=== PATIENT | female | born 1975 | race Two or more races ===

== ENCOUNTER 2025-08-05 12:05 | Inpatient (IN) | payer MEDICAID, OTHER ==
[~2025-08-05] VITALS: Ht 152.4 cm; Wt 101.7 kg
--- NOTE | 2025-08-05 12:28 | ED.PDOC ---
GI ASSESSMENT HPI Comments 50 y/o F, presents to the ED for CC of abdominal pain. Patient states, she has been experiencing intermittent epigastric abdominal pain since, 07/22/25. Patient reports, symptoms now worsening with most recent episode being as of yesterday (07/05/25) now being accompanied by nausea, vomiting, and diarrhea. No other symptoms or modifying factors are present at this time. Chief Complaint: Abdominal Pain Time Seen by MD: 12:45 Reviewed Notes: Nurses Notes, Medications, Allergies Allergies: Coded Allergies: NO KNOWN ALLERGIES (Unverified , 08/05/25) Information Source: Patient Mode of Arrival: Ambulatory Timing: Hours Duration: Since onset Prehospital treatment: None Quality: None Vomitus: Watery Stool: Watery Severity: Moderate Recent: None Recent Hx of: None Modifying Factors: Nothing Associated sign and symptoms: Nausea, Vomiting, Diarrhea, Abdominal Pain Past Medical History PAST MEDICAL HISTORY: Denies Surgical History: Denies all surgeries CATH LAB TECH History: Denies all CATH LAB TECH Hx Family History Family History: Unknown Social History Smoker: Non-Smoker Alcohol: Denies ETOH Use Drugs: Denies Drug Use Lives In: Home Constitutional: denies: chills, diaphoresis, fatigue, fever, malaise, sweats, weakness, others EENTM: denies: blurred vision, double vision, ear bleeding, ear discharge, ear drainage, ear pain, ear ringing, eye pain, eye redness, hearing loss, mouth pain, mouth swelling, nasal discharge, nose bleeding, nose congestion, nose pain, photophobia, tearing, throat pain, throat swelling, voice changes, others Respiratory: denies: cough, hemoptysis, orthopnea, SOB at rest, shortness of breath, SOB with excertion, stridor, wheezing, others Cardiovascular: denies: chest pain, dizzy spells, diaphoresis, Dyspnea on exertion, edema, irregular heart beat, left arm pain, lightheadedness, palpitations, PND, syncope, others Gastrointestinal: reports: abdominal pain, diarrhea, nausea, vomiting; denies: abdomen distended, blood streaked bowels, constipated, dysphagia, difficulty swallowing, hematemesis, melena, poor appetite, poor fluid intake, rectal bleeding, rectal pain, others Genitourinary: denies: abnormal vagina bleeding, burning, dyspareunia, dysuria, flank pain, frequency, hematuria, incontinence, pain, , vagina discharge, urgency, others Neurological: denies: dizziness, fainting, headache, left sided numbness, left sided weakness, numbness, paresthesia, pre-existing deficit, right sided numbness, right sided weakness, seizure, speech problems, tingling, tremors, weakness, others Musculoskeletal: denies: back pain, gout, joint pain, joint swelling, muscle pain, muscle stiffness, neck pain, others Integumetry: denies: bruises, change in color, change in hair/nails, dryness, laceration, lesions, lumps, rash, wounds, others Allergic/Immunocompromised: denies: Difficulty Healing, Frequent Infections, Hives, Itching, others Hematologic/Lymphatic: denies: anemia, blood clots, easy bleeding, easy bruising, swollen glands, others Endocrine: denies: excessive hunger, excessive sweating, excessive thirst, excessive urination, flushing, intolerance to cold, intolerance to heat, unexplained weight gain, unexplained weight loss, others Psychiatric: denies: anxiety, bipolar disorder, depression, hopeless, panic disorder, schizophrenia, sleepless, suicidal, others All Other Systems: Reviewed and Negative Physical Exam General Appearance: No Apparent Distress, Normal HEENT: Normal ENT Inspection, Pharynx Normal Neck: Full Range of Motion, Non-Tender, Normal, Normal Inspection Respiratory: Chest Non-Tender, Lungs Clear, No Accessory Muscle Use, No Respiratory Distress, Normal Breath Sounds Cardiovascular: No Edema, No Murmur, No Gallop, Normal Peripheral Pulses, Re gular Rate/Rhythm Breast Exam: Deferred Gastrointestinal: Epigastric, No Organomegaly, No Pulsatile Mass, Normal Bowel Sounds, Tenderness Genitalia: Deferred Pelvic: Deferred Rectal: Deferred Extremities: No calf tenderness, Normal capillary refill, Normal inspection, Normal range of motion, Non-tender, No pedal edema Musculoskeletal : Apperance: Normal Neurologic: Alert, grain sampler II-XII nml as Tested, No Motor Deficits, Normal Affect, Normal Mood, No Sensory Deficits Cerebellar Function: Normal Reflexes: Normal Skin: Dry, Normal Color, Warm Lymphatic: No Adenopathy Was a procedure done? Was a procedure done?: No GI differential Dx Differential Diagnosis: Constipation, Gastritis/PUD, Gastroenteritis, Electrolyte Imbalance, Food Poisoning, Bacterial, Viral X-Ray, Labs, Meds, VS Vital Signs Date Time Temp Pulse Resp B/P (MAP) Pulse Ox O2 Delivery O2 Flow Rate FiO2 08/05/25 15:47 91 18 172/106 08/05/25 15:29 97 Room Air* 0 21 08/05/25 15:26 98.3 91 18 172/106 (128) 96 98.3 08/05/25 12:13 82 08/05/25 12:06 97.0 86 18 143/77 98 97.0 Lab Test 08/05/25 13:54 Range/Units White Blood Count 12.5 H 4.4-10.8 10^3/uL Red Blood Count 5.06 4.0-5.20 10^6/uL Hemoglobin 15.3 12.2-16.2 g/dL Hematocrit 45.3 36.0-46.0 % Mean Corpuscular Volume 89.7 80.0-100.0 fL Mean Corpuscular Hemoglobin 30.3 28.0-32.0 pg Mean Corpuscular Hemoglobin Concent 33.8 32.0-36.0 g/dL Red Cell Distribution Width 14.6 H 11.8-14.3 % Platelet Count 219 140-450 10^3/uL Mean Platelet Volume 10.8 6.9-10.8 fL Neutrophils (%) (Auto) 76.4 37.0-80.0 % Lymphocytes (%) (Auto) 16.6 10.0-50.0 % Monocytes (%) (Auto) 5.8 0.0-12.0 % Eosinophils (%) (Auto) 0.9 0.0-7.0 % Basophils (%) (Auto) 0.3 0.0-2.0 % Neutrophils # (Auto) 9.6 H 1.6-8.6 10 ^3/uL Lymphocytes # (Auto) 2.1 0.4-5.4 10 ^3/uL Monocytes # (Auto) 0.7 0-1.3 10 ^3/uL Eosinophils # (Auto) 0.1 0-0.8 10 ^3/uL Basophils # (Auto) 0 0-0.2 10 ^3/uL Nucleated Red Blood Cells 0.0 % Sodium Level 143 136-145 mmol/L Potassium Level 4.0 3.5-5.1 mmol/L Chloride Level 105 98-107 mmol/L Carbon Dioxide Level 28 20-31 mmol/L Anion Gap 10 5-15 Blood Urea Nitrogen 10 9-23 mg/dL Creatinine 0.79 0.550-1.02 mg/dL Glomerular Filtration Rate Calc 91 >90 mL/min BUN/Creatinine Ratio 12.7 10.0-20.0 Serum Glucose 99 74-106 mg/dL Calcium Level 9.8 8.7-10.4 mg/dL Current Medications Medications (Trade) Dose Ordered Sig/Huy Route Start Time Stop Time Status Last Admin Sodium Chloride 1,000 ml @ 1,000 mls/hr Q1H ONCE IV 08/05/25 13:45 08/05/25 14:44 DC 08/05/25 15:48 Morphine Sulfate 4 mg ONCE ONCE IV 08/05/25 13:45 08/05/25 13:46 DC 08/05/25 15:47 Ondansetron HCl (Zofran) 4 mg ONCE ONCE IV 08/05/25 13:45 08/05/25 13:46 DC 08/05/25 15:33 [place] [id number] Ph: [phone] DIAGNOSTIC IMAGING Diagnostic Imaging Report : [id number] Signed PATIENT: RAGHAV GARCIA ACCT: [id number] UNIT: [id number] : 1975 LOC: ER ROOM / BED: / AGE / SEX: 50 / F ADM STATUS: REG ER SERVICE [id number] ORDERING PHYSICIAN: CARLITO MENDOZA MD PROCEDURE(s): ABPLIV - CT AB PEL WITH IV CON ONLY REASON: abdominal pain ORDER NUMBER(s): [id number], ACCESSION NUMBER(s): [id number] CLINICAL HISTORY: abdominal pain TECHNIQUE: CT of the abdomen and pelvis was performed with IV contrast. This exam was performed according to our departmental dose optimization program. Up-to-date CT equipment and radiation dose reduction techniques are utilized as appropriate. CTDI 24 DLP 1113 COMPARISON: None FINDINGS: Abdomen/Pelvis: The spleen, adrenal glands, liver, left kidney, uterus, and bladder are unremarkable. There is a right renal cyst. There is mild peripancreatic inflammatory change. There is mild gallbladder mural edema. The abdominal aorta is normal in course and caliber. There are no significant atherosclerotic calcifications. There is no free intraperitoneal air or fluid. There is no enlarged abdominal or pelvic lymph node. There is no bowel wall thickening or dilatation. The appendix is normal. There is mild colonic diverticulosis. Other: The imaged lower thorax demonstrates breathing changes and atelectasis. No acute osseous abnormality is evident. IMPRESSION: Subtle findings of acute pancreatitis. Mild nonspecific gallbladder mural thickening. In the setting of pancreatitis, consider recently passed stone. Please correlate with laboratory values. Mild colonic diverticulosis. ATED BY: ROBBIE MULLEN MD DICTATED DATE/TIME: 08/05/25 160 SIGNED BY: ROBBIE MULLEN MD SIGNED DATE/TIME: 08/05/25 160 CC: Time of 1ST Reevaluation: 13:15 Reevaluation 1ST: Unchanged Patient Education/Counseling: Diagnosis, Treatment Family Education/Counseling: No Family Present SEPSIS Sepsis Screen Date sepsis recognized/suspect: Aug 05, 2025 Time Sepsis recognized/suspect: 1208 Recent Procedure: No On Antibiotic Therapy: No Respiratory Rate >20: No Heart Rate >90: No Temp<36 C (96.8 F) or >38.3 C: No SBP <90 or MAP <65 mmHG: No New Acute Mental Status Change: No Is the patient on CPAP, BIPAP,: No Physician Orders Electrocardigram (08/05/25 12:15) Urinalysis (08/05/25 13:37) Ct Ab Pel With Iv Con Only (08/05/25 13:37) Hepatic Panel (08/05/25 16:29) Lipase (08/05/25 16:29) NS (08/05/25 16:30) Morphine Sulfate Injection (08/05/25 16:30) Ondansetron Hcl (Zofran) (08/05/25 16:30) Vital Signs Date Time Temp Pulse Resp B/P (MAP) Pulse Ox O2 Delivery O2 Flow Rate FiO2 08/05/25 15:47 91 18 172/106 08/05/25 15:29 97 Room Air* 0 21 08/05/25 15:26 98.3 91 18 172/106 (128) 96 98.3 08/05/25 12:13 82 08/05/25 12:06 97.0 86 18 143/77 98 97.0 Laboratory Tests Test 08/05/25 13:54 White Blood Count 12.5 10^3/uL (4.4-10.8) H Medications Medications Dose Ordered Sig/Huy Route Start Time Stop Time Status Last Admin Dose Admin Morphine Sulfate 4 mg ONCE ONCE IV 08/05/25 13:45 08/05/25 13:46 DC 08/05/25 15:47 Ondansetron HCl 4 mg ONCE ONCE IV 08/05/25 13:45 08/05/25 13:46 DC 08/05/25 15:33 Sodium Chloride 1,000 ml @ 1,000 mls/hr Q1H ONCE IV 08/05/25 13:45 08/05/25 14:44 DC 08/05/25 15:48 Departure 1 Departure Time of Disposition: 16:30 (Patient presented with abdominal pain that was co ncerning for possible appendicits, gastritis, cholecystitis, colitis, gastroenteritis, sbo, or orther possible surgical emergency. Data: 1. I ordered and reviewed the result of at least 3 labs including a CBC, BMP, and Urinalysis. 2. I independently interpreted the following tests: CT Abdomen and Pelvis is concerning for acute pancreatitis.Risk:This patient has a high risk of morbidity due to further diagnostic testing or treatment and may suffer from an acute abdominal process disorder. Workup reveals acute pancreatitis and patient should be admitted for further workup. and possible expert consultation. ) Impression: Primary Impression: Acute pancreatitis Qualified Codes: K85.90 - Acute pancreatitis without necrosis or infection, unspecified Additional Impression: Intractable abdominal pain Disposition: ADMITTED INPATIENT Admit to: Med Surg Condition: Guarded Critical Care Note Critical Care Time?: Yes Critical care comment: Intractable abdominal pain Authorized and Performed by: Carlito Mendoza MD Total critical care time: Approximately 38 minutes Due to a high probability of clinically significant, life threatening deterioration, the patient required my highest level of preparedness to intervene emergently and I personally spent this critical care time directly and personally managing the patient. This critical care time included obtaining a history; examining the patient; pulse oximetry; ordering and review of studies; arranging urgent treatment with development of a management plan; evaluation of patient's response to treatment; frequent reassessment; and, discussions with other providers. This critical care time was performed to assess and manage the high probability of imminent, life-threatening deterioration that could result in multi-organ failure. It was exclusive of separately billable procedures and treating other patients and teaching time. Please see my other sections and the rest of the note for further information on patient assessment and treatment. Stability Stability form required: No Heart Score Heart Score: Heart Score Response (Comments) Value History N/A 0 EKG N/A 0 Age N/A 0 Risk Factors N/A 0 Troponin N/A 0 Total 0 I personally scribed for CARLITO MENDOZA MD ([email or web address]) on 08/05/25 at 12:28. Electronically submitted by Vero Grajeda ([email or web address]). I personally scribed for CARLITO MENDOZA MD ([email or web address]) on 08/05/25 at 13:31. Electronically submitted by Vero Grajeda ([email or web address]). I personally scribed for CARLITO MENDOZA MD ([email or web address]) on 08/05/25 at 16:16. Electronically submitted by Vero Grajeda ([email or web address]). CARLITO MENDOZA MD Aug 05, 2025 12:28
[2025-08-05 14:07] LABS: Hematocrit 45.3 % (36.0-46.0); Hemoglobin 15.3 g/dL (12.2-16.2); Mean Corpuscular Hemoglobin 30.3 pg (28.0-32.0); Mean Corpuscular Volume 89.7 fL (80.0-100.0); Nucleated Red Blood Cells % 0.0 %
[2025-08-05 14:11] LABS: Chloride 105 mmol/L (98-107); Potassium 4.0 mmol/L (3.5-5.1); Sodium 143 mmol/L (136-145)
[2025-08-05 14:12] LABS: Anion Gap 10 (5-15); Carbon Dioxide 28 mmol/L (20-31)
[2025-08-05 14:13] LABS: Calcium 9.8 mg/dL (8.7-10.4)
[2025-08-05 14:18] LABS: BUN/Creatinine Ratio 12.7 (10.0-20.0); Blood Urea Nitrogen 10 mg/dL (9-23); Glucose 99 mg/dL (74-106)
[2025-08-05] MEDS: IOHEXOL 300 MG/ML 100ML BOTTLE IJ ONE (14:53)
[2025-08-05] MEDS: ONDANSETRON HCL 4 MG/2 ML VIAL IV ONE ×2 (15:33→22:07)
[2025-08-05] MEDS: MORPHINE SULFATE 4 MG/ML SYR/VIAL IV ONE ×2 (15:47→22:08)
[2025-08-05] MEDS: SODIUM CHLORIDE 0.9% 1,000 ML IV ONE ×2 (15:48→21:10)
--- NOTE | 2025-08-05 16:04 | DVH ---
CLINICAL HISTORY: abdominal pain TECHNIQUE: CT of the abdomen and pelvis was performed with IV contrast. This exam was performed accor ding to our departmental dose optimization program. Up-to-date CT equipment and radiation dose reduct ion techniques are utilized as appropriate. CTDI 24 DLP 1113 COMPARISON: None FINDINGS: Abdomen/Pelvis: The spleen, adrenal glands, liver, left kidney, uterus, and bladder are unremarkable. There is a righ t renal cyst. There is mild peripancreatic inflammatory change. There is mild gallbladder mural edema. The abdominal aorta is normal in course and caliber. There are no significant atherosclerotic calcifi cations. There is no free intraperitoneal air or fluid. There is no enlarged abdominal or pelvic lymph node. There is no bowel wall thickening or dilatation. The appendix is normal. There is mild colonic divert iculosis. Other: The imaged lower thorax demonstrates breathing changes and atelectasis. No acute osseous abnormality is evident. IMPRESSION: Subtle findings of acute pancreatitis. Mild nonspecific gallbladder mural thickening. In the setting of pancreatitis, consider recently pass ed stone. Please correlate with laboratory values. Mild colonic diverticulosis.
[2025-08-05 17:08] LABS: Alanine Aminotransferase 44 U/L (7-40); Albumin 4.6 g/dL (3.2-4.8); Alkaline Phosphatase 92 U/L (46-116); Bilirubin, Total 1.3 mg/dL (0.2-1.0); Total Protein 7.6 g/dL (5.7-8.2)
[2025-08-05 17:09] LABS: Bilirubin, Direct 0.4 mg/dL (<0.3)
[2025-08-05 17:30] LABS: Lipase > 3500 U/L (12-53)
[2025-08-05] MEDS ORDERED: SODIUM CHLORIDE 0.9% 1,000 ML IV SCH (17:45)
[2025-08-05] MEDS ORDERED: MORPHINE SULFATE INJ 2 MG/ml SYRG IV PRN (18:00)
[2025-08-05] MEDS ORDERED: DEXTROSE (50%) 50ML SYRG IV PRN (18:00)
--- NOTE | 2025-08-05 18:07 | ECG ---
[facility] Test Date: 2025-08-05 Test Time: 12:13:00 Pat Name: RAGHAV GARCIA Department: ED Room: 0281 Gender: F Web Production Manager: FREDDIE : 1975 Requested By: CARLITO HERNANDEZ Order Number: [id number] Reading MD: Fritz Nash Measurements Intervals [place] Rate: 82 P: 67 ID: [id number] QRS: 49 QRSD: 95 T: 60 QT: 374 QTc: 437 Interpretive Statements Sinus rhythm Low voltage, precordial leads Consider inferior infarct Electronically Signed On 08-07-2025 20:36:16 PDT by Fritz Nash Please click the below link to view image of tracing.
[2025-08-05] MEDS ORDERED: LACTATED RINGER'S 1,000 ML IV SCH (18:15)
--- NOTE | 2025-08-05 18:21 | DVHHP2 ---
History of Present Illness History of Present Illness Patient is 50 years old female with past medical history of diabetes mellitus on Ozempic, hyperlipidemia, knee pain came with a complaint of abdominal pain. As per patient she started having epigastric pain started on 0 07/22/25, 08/06, radiating to the back, intermittent, crampy or sharp in nature. As per patient pain is to go down to 5/10 and go away sometimes but from yesterday from 07/05/2025 patient's pain is persistent, in the epigastric region, associated nausea and vomiting 3 times, no blood. Patient also reported nonbloody diarrhea 2 times. Patient denied any fever, dysuria, acute joint redness or swelling, chest pain no shortness of breaths. Initial lab workup revealed leukocytosis with WBC 12.5, bilirubin 1.3, direct bilirubin 0.4, AST 54, ALT 54. CT abdomen and pelvis-Subtle findings of acute pancreatitis.Mild nonspecific gallbladder mural thickening. In the setting of pancreatitis, consider recently passed stone. Please correlate with laboratory values. Mild colonic diverticulosis. PMH-diabetes mellitus, hyperlipidemia, knee pain PSH- , annual surgery-could not specifically give the reason Allergy-and q.d. Personal History/ Social Khgnksy-ve-rxgthg, last smoking 5 years before, no drug abuse or alcohol abuse, lives with dad Review of Systems Review of Systems Cardiovascular- deny acute chest pain or shortness of breath or cough or palpitation Respiratory denies cough or short of breath or wheezing Musculoskeletal-denies acute joint swelling or tenderness or redness Neurological- denies acute dysarthria, dysphagia, change in vision Psychiatry- denies depression or SI or HI Skin- denies acute rash or purpura Allergies: Coded Allergies: NO KNOWN ALLERGIES (Unverified , 08/05/25) Medications Current Medications Medications Dose Ordered Sig/Huy Route Start Time Stop Time Status Last Admin Dose Admin Enoxaparin Sodium 40 mg DAILY SC 08/06/25 10:00 UNV Pantoprazole Sodium 40 mg DAILY IV 08/05/25 18:00 UNV Diagnostic Test (Pha) 1 strip Q6HR 08/05/25 18:00 UNV Insulin Human Regular Q6HR SC 08/05/25 18:00 UNV Dextrose 50 ml UD PRN IV 08/05/25 18:00 UNV Morphine Sulfate 2 mg Q4HPRN PRN IV 08/05/25 18:00 UNV Lactated Ringer's 1,000 ml @ 200 mls/hr Q5H IV 08/05/25 18:15 UNV Exam Vital Signs Vital Signs Date Time Temp Pulse Resp B/P (MAP) Pulse Ox O2 Delivery O2 Flow Rate FiO2 08/05/25 15:47 91 18 172/106 08/05/25 15:29 97 Room Air* 0 21 08/05/25 15:26 98.3 98.3 Exam General examination- awake, alert, oriented HEENT- PEERLA, no acute nasal discharge Cardiovascular- S1-S2 audible, rate and rhythm regular, no murmur Respiratory- CTAB, no wheeze or rhonchi Gastrointestinal-epigastric tenderness++, bowel sound+. Nondistended Musculoskeletal-no acute joint swelling or tenderness or redness Lower extremity- no leg edema Neurological- cranial nerves intact, no acute dysarthria or dysphagia Psychiatry- denies depression or SI or HI Skin- no acute rash or purpura Labs/Xrays Labs Test 08/05/25 13:54 Range/Units White Blood Count 12.5 H 4.4-10.8 10^3/uL Red Blood Count 5.06 4.0-5.20 10^6/uL Hemoglobin 15.3 12.2-16.2 g/dL Hematocrit 45.3 36.0-46.0 % Mean Corpuscular Volume 89.7 80.0-100.0 fL Mean Corpuscular Hemoglobin 30.3 28.0-32.0 pg Mean Corpuscular Hemoglobin Concent 33.8 32.0-36.0 g/dL Red Cell Distribution Width 14.6 H 11.8-14.3 % Platelet Count 219 140-450 10^3/uL Mean Platelet Volume 10.8 6.9-10.8 fL Neutrophils (%) (Auto) 76.4 37.0-80.0 % Lymphocytes (%) (Auto) 16.6 10.0-50.0 % Monocytes (%) (Auto) 5.8 0.0-12.0 % Eosinophils (%) (Auto) 0.9 0.0-7.0 % Basophils (%) (Auto) 0.3 0.0-2.0 % Neutrophils # (Auto) 9.6 H 1.6-8.6 10 ^3/uL Lymphocytes # (Auto) 2.1 0.4-5.4 10 ^3/uL Monocytes # (Auto) 0.7 0-1.3 10 ^3/uL Eosinophils # (Auto) 0.1 0-0.8 10 ^3/uL Basophils # (Auto) 0 0-0.2 10 ^3/uL Nucleated Red Blood Cells 0.0 % Sodium Level 143 136-145 mmol/L Potassium Level 4.0 3.5-5.1 mmol/L Chloride Level 105 98-107 mmol/L Carbon Dioxide Level 28 20-31 mmol/L Anion Gap 10 5-15 Blood Urea Nitrogen 10 9-23 mg/dL Creatinine 0.79 0.550-1.02 mg/dL Glomerular Filtration Rate Calc 91 >90 mL/min BUN/Creatinine Ratio 12.7 10.0-20.0 Serum Glucose 99 74-106 mg/dL Calcium Level 9.8 8.7-10.4 mg/dL Total Bilirubin 1.3 H 0.2-1.0 mg/dL Direct Bilirubin 0.4 H <0.3 mg/dL Aspartate Amino Transferase (AST) 54 H 13-40 U/L Alanine Aminotransferase (ALT) 44 H 7-40 U/L Alkaline Phosphatase 92 46-116 U/L Total Protein 7.6 5.7-8.2 g/dL Albumin 4.6 3.2-4.8 g/dL Lipase > 3500 H 12-53 U/L SEPSIS Sepsis Screen Date sepsis recognized/suspect: Aug 05, 2025 Time Sepsis recognized/suspect: 1208 Recent Procedure: No On Antibiotic Therapy: No Respiratory Rate >20: No Heart Rate >90: No Temp<36 C (96.8 F) or >38.3 C: No SBP <90 or MAP <65 mmHG: No New Acute Mental Status Change: No Is the patient on CPAP, BIPAP,: No Physician Orders Urinalysis (08/05/25 13:37) Ct Ab Pel With Iv Con Only (08/05/25 13:37) Sodium Chloride 0.9% (08/05/25 16:30) Morphine Sulfate Injection (08/05/25 16:30) Ondansetron Hcl (Zofran) (08/05/25 16:30) Admit (08/05/25 17:39) Code Status (08/05/25 17:39) Enoxaparin Sodium (Lovenox) (08/06/25 10:00) Complete Blood Count (08/06/25 04:00) Comprehensive Metabolic Panel (08/06/25 04:00) Npo (Nothing By Mouth) Diet (08/05/25 Dinner) Notify Of Changes From Base (08/05/25 17:39) Stat Ekg For Chest Pain (08/05/25 17:39) Pantoprazole (Protonix) (08/05/25 18:00) LIVER (08/05/25 17:48) Glucose Blood (Accu-Chek Comfort Curve T (08/05/25 18:00) Insulin R (Human) (Insulin R) (08/05/25 18:00) Dextrose 50% Syringe (08/05/25 18:00) Chest Xray 1 View (08/05/25 17:48) Morphine Sulfate Injection (08/05/25 18:00) Lactated Ringer's (08/05/25 18:15) Lipid Panel (08/05/25 18:10) Vital Signs Date Time Temp Pulse Resp B/P (MAP) Pulse Ox O2 Delivery O2 Flow Rate FiO2 08/05/25 15:47 91 18 172/106 08/05/25 15:29 97 Room Air* 0 21 08/05/25 15:26 98.3 91 18 172/106 (128) 96 98.3 08/05/25 12:13 82 08/05/25 12:06 97.0 86 18 143/77 98 97.0 Laboratory Tests Test 08/05/25 13:54 White Blood Count 12.5 10^3/uL (4.4-10.8) H Medications Medications Dose Ordered Sig/Huy Route Start Time Stop Time Status Last Admin Dose Admin Morphine Sulfate 4 mg ONCE ONCE IV 08/05/25 13:45 08/05/25 13:46 DC 08/05/25 15:47 4 MG Ondansetron HCl 4 mg ONCE ONCE IV 08/05/25 13:45 08/05/25 13:46 DC 08/05/25 15:33 4 MG Sodium Chloride 1,000 ml @ 1,000 mls/hr Q1H ONCE IV 08/05/25 13:45 08/05/25 14:44 DC 08/05/25 15:48 1,000 MLS/HR Assessment/Plan Assessment/Plan Assessment and plan # acute pancreatitis # intractable abdominal pain with nausea and vomiting likely due to above # suspected acute cholecystitis # transaminitis -leukocytosis with WBC 12.5 -CT scan finding subtle changes for acute pancreatitis -NPO -continue IV fluid as prescribed -ordered ceftriaxone g IV daily and metronidazole 500 mg q.8h -ultrasound of the liver for further evaluation and care-cholelithiasis, thickened gallbladder wall, Hernández sign negative, no CBD dilatation. -continue current pain management # diabetes mellitus type 2 -insulin sliding scale # hyperlipidemia -ordered lipid panel # obesity, -patient was counseled about the effect of obesity, low-fat diet, physical activity as tolerated, weight reduction Goals of care, Code status full ; discussed with >15 minutes PUD prophylaxis: Pantoprazole DVT prophylaxis: Lovenox Plan discussed with Dr. Michele , nursing staff, Total time spent on patient evaluation, chart review, assessment and plan, discussion discussion >35 minutes Plan discussed with: Patient, Daughter, Other (RN) My Orders Orders - MARISA MOY RESIDENT Procedure Category Date Status Time Admit ADMIT 08/05/25 Transmitted 17:39 Code Status CODE 08/05/25 Transmitted 17:39 Enoxaparin Sodium PHA 08/06/25 Logged (Lovenox) 10:00 Complete Blood Count LAB 08/06/25 Verified 04:00 Comprehensive LAB 08/06/25 Verified Metabolic Panel 04:00 Npo (Nothing By DIET 08/05/25 Transmitted Mouth) Diet Dinner Notify Of Changes MOISÉS 08/05/25 In Process From Base 17:39 Stat Ekg For Chest MOISÉS 08/05/25 In Process Pain 17:39 Pantoprazole PHA 08/05/25 Logged (Protonix) 18:00 LIVER US 08/05/25 Logged 17:48 Glucose Blood PHA 08/05/25 Logged (Accu-Chek Comfort 18:00 Insulin R (Human) PHA 08/05/25 Logged (Insulin R) 18:00 Dextrose 50% Syringe PHA 08/05/25 Logged 18:00 Chest Xray 1 View XY 08/05/25 Logged 17:48 Morphine Sulfate PHA 08/05/25 Logged Injection 18:00 Lactated Ringer's PHA 08/05/25 Logged 18:15 Lipid Panel LAB 08/05/25 Logged 18:10 Date of Service: Aug 05, 2025 Billing Provider: CHAN MICHELE MD Common Visit Codes: 97368-[id number] INP/OBS CARE (HIGH) Secondary Visit Codes: [id number] CARE PLAN 30 MINUTES MARISA MOY RESIDENT Aug 05, 2025 18:21
[2025-08-05 18:39] LABS: Cholesterol 166 mg/dL (< 200); HDL Cholesterol 45 mg/dL (40-59)
[2025-08-05 18:42] LABS: Triglycerides 174 mg/dL (< 150)
--- NOTE | 2025-08-05 18:47 | DVH ---
INDICATION: Acute abdominal pain, suspected GB stone/pancreatic TECHNIQUE: Multiple real-time sonographic images of the abdomen were obtained. COMPARISON: None FINDINGS: Echogenic changes of the hepatic parenchyma consistent with steatosis. The liver measures 16.71 cm. No intrahepatic biliary ductal dilatation is noted. The gallbladder wall measures 0.41 cm and is thickened. Gallstones are seen. The common duct not v isible. No pericholecystic fluid is noted. Negative sonographic Hernández's sign The right kidney measures 9.06 cm. No hydronephrosis. 3.1 cm anechoic lesion cortex right kidney con sistent with cortical cysts. The pancreas is not well visualized due to obscuration from bowel gas. The visualized portions of the IVC and aorta are grossly unremarkable. IMPRESSION: 1. Cholelithiasis, thickened gallbladder wall, negative sonographic Hernández's sign. 2. 16.7 cm liver with fatty changes of the parenchyma. 3. 3 cm anechoic cortical lesion right kidney consistent with a cortical cyst.
[2025-08-05] MEDS: InsuLIN REG 1unit/0.01ml Soln (100units/ml) SC SCH (21:03)
[2025-08-05] MEDS: ACCU-CHEK COMFORT CURVE STRIP VI SCH (21:03)
[2025-08-05] MEDS: PANTOPRAZOLE 40 MG/10 ML VIAL INJ IV SCH (21:10)
[2025-08-05] MEDS: LACTATED RINGER'S 1,000 ML IV SCH (23:51)
[2025-08-06] VITALS (8 sets, daily range): BP systolic 111–155; BP diastolic 70–97; PULSE 82–94; RESP 15–20; TEMP 97.5–99.3; O2SAT 90–100
[2025-08-06 01:25] LABS: Urine Protein, UAD Negative (Negative)
[2025-08-06] MEDS ORDERED: ATOR20TA50 PO (04:21)
[2025-08-06] MEDS ORDERED: SEMA2INJ3 SC (04:21)
[2025-08-06] MEDS ORDERED: OMEP20TA PO (04:21)
[2025-08-06] MEDS: MORPHINE SULFATE 4 MG/ML SYR/VIAL IV PRN (05:16)
[2025-08-06 07:27] LABS: Hematocrit 39.5 % (36.0-46.0); Hemoglobin 13.2 g/dL (12.2-16.2); Mean Corpuscular Hemoglobin 30.0 pg (28.0-32.0); Mean Corpuscular Volume 89.6 fL (80.0-100.0); Nucleated Red Blood Cells % 0.0 %
[2025-08-06 07:45] LABS: Albumin 3.9 g/dL (3.2-4.8); Alkaline Phosphatase 76 U/L (46-116); Anion Gap 9 (5-15); BUN/Creatinine Ratio 14.3 (10.0-20.0); Blood Urea Nitrogen 10 mg/dL (9-23); Calcium 8.9 mg/dL (8.7-10.4); Carbon Dioxide 28 mmol/L (20-31); Chloride 105 mmol/L (98-107); Glucose 102 mg/dL (74-106); Sodium 142 mmol/L (136-145); Total Protein 6.3 g/dL (5.7-8.2)
[2025-08-06 07:47] LABS: Alanine Aminotransferase 43 U/L (7-40); Bilirubin, Total 1.3 mg/dL (0.2-1.0); Potassium 3.5 mmol/L (3.5-5.1)
--- NOTE | 2025-08-06 09:01 | DVH ---
CLINICAL HISTORY: Out acute cholecystitis/CBD stone TECHNIQUE: MRI and MRCP of the abdomen was performed without gadolinium. 3D reconstructed images wer e created under concurrent radiologist supervision and archived on the PACS system. COMPARISON: None FINDINGS: The spleen, liver, adrenal glands, and left kidney are unremarkable. There is a right renal cyst. There is mild peripancreatic parenchymal edema and peripancreatic inflammation. There is trace fluid at the pancreatic tail extending slightly into the mid left abdomen. There are punctate gallstones with mild gallbladder mural edema / wall thickening. The common duct is normal in caliber, measuring 2 mm. No intraductal filling defect to suggest a ston e is seen. The abdominal aorta is normal in course and caliber. No enlarged lymph node is seen. IMPRESSION: Acute pancreatitis. Cholelithiasis with mild gallbladder wall mural edema/wall thickening. Normal caliber biliary ductal system. No intraductal filling defect to suggest a stone.
[2025-08-06] MEDS: ENOXAPARIN SOD 40 MG/0.4 ML SYRINGE SC SCH (10:23)
--- NOTE | 2025-08-06 12:18 | DVHPNRES ---
Progress Note Date Seen: Aug 06, 2025 Resident Creating Document: MARISA MOY RESIDENT Medical Necessity Reason Pt with a Central, PICC or Fol: No Subjective Review of Systems Patient is 50 years old female with past medical history of diabetes mellitus on Ozempic, hyperlipidemia, knee pain came with a complaint of abdominal pain. As per patient she started having epigastric pain started on 0 07/22/, /, radiating to the back, intermittent, crampy or sharp in nature. As per patient pain is to go down to 5/10 and go away sometimes but from yesterday from 07/05/2025 patient's pain is persistent, in the epigastric region, associated nausea and vomiting 3 times, no blood. Patient also reported nonbloody diarrhea 2 times. Patient denied any fever, dysuria, acute joint redness or swelling, chest pain no shortness of breaths. Initial lab workup revealed leukocytosis with WBC 12.5, bilirubin 1.3, direct bilirubin 0.4, AST 54, ALT 54. Urinalysis revealed leukocyte esterase 1+, WBC 6, bacteria few. CT abdomen and pelvis- Subtle findings of acute pancreatitis.Mild nonspecific gallbladder mural thickening. In the setting of pancreatitis, consider recently passed stone. Please correlate with laboratory values. Mild colonic diverticulosis. Ultrasound of the liver revealed1. Cholelithiasis, thickened gallbladder wall, negative sonographic Hernández's sign. 16.7 cm liver with fatty changes of the parenchyma.3. 3 cm anechoic cortical lesion right kidney consistent with a cortical cyst. MRCP revealed- Acute pancreatitis. Cholelithiasis with mild gallbladder wall mural edema/wall thickening. Normal caliber biliary ductal system. No intraductal filling defect to suggest a stone. PMH-diabetes mellitus, hyperlipidemia, knee pain PSH- , annual surgery-could not specifically give the reason Allergy-and q.d. Personal History/ Social [id number], last smoking 5 years before, no drug abuse or alcohol abuse, lives with dad Was seen today at bedside, labs and chart reviewed. Patient reported pain is improving, advance diet to clear liquid diet. MRCP revealed- Acute pancreatitis. Cholelithiasis with mild gallbladder wall mural edema/wall thickening. Normal caliber biliary ductal system. No intraductal filling defect to suggest a stone. Ordered surgery consult for further evaluation and care. Surgery recommended Possible OR tomorrow for laparoscopic cholecystectomy depending on patient's status. NPO after midnight. Ordered urine culture. Objective vital signs Vital Sign Date Time Temp Pulse Resp B/P (MAP) Pulse Ox O2 Delivery O2 Flow Rate FiO2 08/06/25 09:00 97.6 86 18 111/73 (86) 90 97.6 08/06/25 04:40 Room Air* 0 21 Total Intake and Output 08/05/25 08/05/25 08/06/25 15:00 23:00 07:00 Intake Total 100 ml Output Total 200 ml Balance -200 ml 100 ml medications Current Medications Medications Dose Ordered Sig/Huy Route Start Time Stop Time Status Last Admin Dose Admin Pantoprazole Sodium 40 mg DAILY IV 08/05/25 20:55 08/06/25 10:23 40 MG Diagnostic Test (Pha) 1 strip Q6HR 08/05/25 18:00 08/06/25 05:44 1 STRIP Insulin Human Regular Q6HR SC 08/05/25 18:00 Dextrose 50 ml UD PRN IV 08/05/25 18:00 Ceftriaxone Sodium 50 ml @ 100 mls/hr DAILY@09 IV 08/05/25 20:45 08/06/25 10:14 100 MLS/HR Metronidazole 100 ml @ 100 mls/hr Q8HR IV 08/05/25 20:45 08/06/25 05:44 100 MLS/HR Morphine Sulfate 4 mg Q4HPRN PRN IV 08/05/25 21:00 08/06/25 05:16 4 MG Lactated Ringer's 1,000 ml @ 90 mls/hr Q11H7M IV 08/06/25 17:00 Examination General examination- awake, alert, oriented HEENT- PEERLA, no acute nasal discharge Cardiovascular- S1-S2 audible, rate and rhythm regular, no murmur Respiratory- CTAB, no wheeze or rhonchi Gastrointestinal-epigastric tenderness+, Hernández's sign positive, bowel sound+. Nondistended Musculoskeletal-no acute joint swelling or tenderness or redness Lower extremity- no leg edema Neurological- cranial nerves intact, no acute dysarthria or dysphagia Psychiatry- denies depression or SI or HI Skin- no acute rash or purpura laboratory and microbiology Laboratory Tests 08/06/25 06:25 Test 08/06/25 06:25 Range/Units Serum Glucose 102 74-106 mg/dL Problem List/Assessment/Plan Problem List/Assessment/Plan Assessment and plan-patient with acute gallstone pancreatitis, symptoms improving, status post surgery consult, recommended for possible laparoscopic cholecystectomy tomorrow NPO after midnight # acute gallstone pancreatitis # intractable abdominal pain with nausea and vomiting likely due to above # suspected acute cholecystitis # transaminitis # cholelithiasis, gallbladder wall thickening and edematous -leukocytosis with WBC 12.5 -CT scan finding subtle changes for acute pancreatitis -NPO after midnight -continue IV fluid as prescribed -ordered ceftriaxone g IV daily and metronidazole 500 mg q.8h -ultrasound of the liver for further evaluation and care-cholelithiasis, thickened gallbladder wall, Hernández sign negative, no CBD dilatation. -MRCP revealed- Acute pancreatitis. Cholelithiasis with mild gallbladder wall mural edema/wall thickening. Normal caliber biliary ductal system. No intraductal filling defect to suggest a stone. -continue current pain management - surgery consult -recommended for Possible OR tomorrow for laparoscopic cholecystectomy depending on patient's status # UTI -ordered urine culture -continue current antibiotic # diabetes mellitus type 2 -insulin sliding scale # hyperlipidemia -triglyceride 174 # obesity, -patient was counseled about the effect of obesity, low-fat diet, physical activity as tolerated, weight reduction Goals of care, Code status full ; discussed with >15 minutes PUD prophylaxis: Pantoprazole DVT prophylaxis: Lovenox Plan discussed with Dr. Michele , nursing staff, Total time spent on patient evaluation, chart review, assessment and plan, discussion discussion >35 minutes Plan discussed with: Patient, Daughter, Other (R Plan discussed with: Patient, Daughter (RN), Other My Orders My Orders Orders - MARISA MOY RESIDENT Procedure Category Date Status Time Admit ADMIT 08/05/25 Transmitted 17:39 Code Status CODE 08/05/25 Transmitted 17:39 Npo (Nothing By DIET 08/05/25 Transmitted Mouth) Diet Dinner Notify Of Changes MOISÉS 08/05/25 In Process From Base 17:39 Stat Ekg For Chest MOISÉS 08/05/25 In Process Pain 17:39 Pantoprazole PHA 08/05/25 In Process (Protonix) 20:55 LIVER US 08/05/25 Resulted 17:48 Glucose Blood PHA 08/05/25 In Process (Accu-Chek Comfort 18:00 Insulin R (Human) PHA 10/9/25 In Process (Insulin R) 18:00 Dextrose 50% Syringe PHA 08/05/25 In Process 18:00 Morphine Sulfate PHA 08/05/25 In Process Injection 18:00 Ceftriaxone 1gm/50ml PHA 08/05/25 In Process (Rocephin) 20:45 Metronidazole PHA 08/05/25 In Process 500mg/100ml (Flagyl 20:45 Vitamin B12 LAB 08/05/25 In Process 18:26 Folate (Folic Acid) LAB 08/05/25 In Process 18:26 Morphine Sulfate PHA 08/05/25 In Process Injection 21:00 Urine Bacterial LEO 08/06/25 In Process Culture 06:36 Mrcp Mri MRI 08/06/25 Resulted 20:19 * Surgical Consult CONS 08/06/25 Transmitted Date of Service: Aug 06, 2025 Billing Provider: CHAN MICHELE MD Common Visit Codes: [id number] INP/OBS CARE(HIGH) MARISA MOY RESIDENT Aug 06, 2025 12:18 CHAN MICHELE MD Aug 06, 2025 19:19
[2025-08-06] MEDS: LACTATED RINGER'S 1,000 ML IV SCH (14:12)
--- NOTE | 2025-08-06 14:55 | DVHINCON2 ---
Consultation - Surgical Date Seen: Aug 06, 2025 Referring Physician Reason for Consultation Gallstone pancreatitis History of Present Illness History of Present Illness Mrs. Barber is a 50-year-old female who presented to the hospital with epigastric abdominal pain that radiates to the back. This 1st started on 07/22 and states that she took some antacid medicines and helped her. 2-3 days later the pain came back but it was less severe than on July 22. This pain also went away but yesterday the pain came back it was stabbing in nature and radiating to the back. Patient states that it was so severe it doubled her over. Pain is associated with nausea. She has never had this happen to her before. Denies fevers, chills, acholic stools, yellowing of the eyes, or darkening of the urine. Denies any alcohol use, hyper triglyceridemia or smoking. She does take Ozempic. Past Medical/Surgical History Past Medical/Surgical History PMH morbid obesity, hyperlipidemia PSH hemorrhoidectomy Family and Social History Family and Social History Family history noncontributory ETOH/T Ob/drugs denies Allergies and medications Allergies: Coded Allergies: NO KNOWN ALLERGIES (Unverified , 08/05/25) Home Meds Reported Medications Omeprazole (Gnp Omeprazole) 20 Mg Tab, 1 TAB PO DAILY, #90 TAB 1 Refill 08/06/25 Atorvastatin Calcium (ATORVASTATIN CALCIUM) 20 Mg Tab, 1 TAB PO DAILY, #30 TAB 5 Refills 08/06/25 Semaglutide (Ozempic) 2 Mg/3 Ml Inj, 2 MG SC, INJ 08/06/25 Review of systems Review of Systems: Deferred Examination Vital signs Vital Signs Date Time Temp Pulse Resp B/P (MAP) Pulse Ox O2 Delivery O2 Flow Rate FiO2 08/06/25 13:00 98.2 83 18 137/81 (99) 92 98.2 08/06/25 08:00 Room Air* 0 21 Medications Current Medications Medications (Trade) Dose Ordered Sig/Huy Route PRN Reason Start Time Stop Time Status Last Admin Sodium Chloride 1,000 ml @ 120 mls/hr Q8H20M IV 08/05/25 17:45 08/05/25 18:11 DC Enoxaparin Sodium (Lovenox) 40 mg DAILY SC 08/06/25 10:00 08/06/25 10:55 DC 08/06/25 10:23 Pantoprazole Sodium (Protonix) 40 mg DAILY IV 08/05/25 20:55 08/06/25 10:23 Diagnostic Test (Pha) (Accu-Chek Comfort Curve T) 1 strip Q6HR 08/05/25 18:00 08/06/25 12:00 Insulin Human Regular (InsuLIN R) Q6HR SC 08/05/25 18:00 Dextrose 50 ml UD PRN IV Blood Sugar LESS THAN 60 08/05/25 18:00 Morphine Sulfate 2 mg Q4HPRN PRN IV SEVERE PAIN (7-10 PAIN SCALE) 08/05/25 18:00 08/05/25 18:56 DC Lactated Ringer's 1,000 ml @ 200 mls/hr Q5H IV 08/05/25 18:15 08/05/25 18:56 DC Ceftriaxone Sodium 50 ml @ 100 mls/hr DAILY@09 IV 08/05/25 20:45 08/06/25 10:14 Metronidazole 100 ml @ 100 mls/hr Q8HR IV 08/05/25 20:45 08/06/25 05:44 Lactated Ringer's 1,000 ml @ 150 mls/hr Q6H40M IV 08/05/25 22:45 08/06/25 10:53 DC 08/05/25 23:51 Morphine Sulfate 4 mg Q4HPRN PRN IV SEVERE PAIN (7-10 PAIN SCALE) 08/05/25 21:00 08/06/25 05:16 Lactated Ringer's 1,000 ml @ 90 mls/hr Q11H7M IV 08/06/25 17:00 08/06/25 14:12 Laboratory Labs Test 08/06/25 11:57 08/06/25 06:25 08/06/25 01:00 08/05/25 13:54 Range/Units POC Glucose 109 H 70-106 mg/dl White Blood Count 8.1 # 4.4-10.8 10^3/uL Red Blood Count 4.41 4.0-5.20 10^6/uL Hemoglobin 13.2 12.2-16.2 g/dL Hematocrit 39.5 # 36.0-46.0 % Mean Corpuscular Volume 89.6 80.0-100.0 fL Mean Corpuscular Hemoglobin 30.0 28.0-32.0 pg Mean Corpuscular Hemoglobin Concent 33.5 32.0-36.0 g/dL Red Cell Distribution Width 15.0 H 11.8-14.3 % Platelet Count 199 140-450 10^3/uL Mean Platelet Volume 10.9 H 6.9-10.8 fL Neutrophils (%) (Auto) 77.4 37.0-80.0 % Lymphocytes (%) (Auto) 15.7 10.0-50.0 % Monocytes (%) (Auto) 5.6 0.0-12.0 % Eosinophils (%) (Auto) 1.0 0.0-7.0 % Basophils (%) (Auto) 0.3 0.0-2.0 % Neutrophils # (Auto) 6.3 1.6-8.6 10 ^3/uL Lymphocytes # (Auto) 1.3 0.4-5.4 10 ^3/uL Monocytes # (Auto) 0.5 0-1.3 10 ^3/uL Eosinophils # (Auto) 0.1 0-0.8 10 ^3/uL Basophils # (Auto) 0 0-0.2 10 ^3/uL Nucleated Red Blood Cells 0.0 % Sodium Level 142 136-145 mmol/L Potassium Level 3.5 3.5-5.1 mmol/L Chloride Level 105 98-107 mmol/L Carbon Dioxide Level 28 20-31 mmol/L Anion Gap 9 5-15 Blood Urea Nitrogen 10 9-23 mg/dL Creatinine 0.70 0.550-1.02 mg/dL Glomerular Filtration Rate Calc 105 >90 mL/min BUN/Creatinine Ratio 14.3 10.0-20.0 Serum Glucose 102 74-106 mg/dL Calcium Level 8.9 8.7-10.4 mg/dL Total Bilirubin 1.3 H 0.2-1.0 mg/dL Aspartate Amino Transferase (AST) 29 13-40 U/L Alanine Aminotransferase (ALT) 43 H 7-40 U/L Alkaline Phosphatase 76 46-116 U/L Total Protein 6.3 5.7-8.2 g/dL Albumin 3.9 3.2-4.8 g/dL Urine Color Light-yellow Yellow Urine Clarity Clear Clear Urine pH 6.0 5.0-9.0 Urine Specific [place] 1.032 1.001-1.035 Urine Protein Negative Negative Urine Ketones Negative Negative Urine Blood Negative Negative /uL Urine Nitrite Negative Negative Urine Bilirubin Negative Negative Urine Urobilinogen Normal Negative mg/dL Urine Leukocyte Esterase 1+ Negative /uL Urine RBC None seen 0 - 4 /hpf Urine Microscopic WBC 6 H 0-5 /HPF Urine Squamous Epithelial Cells Few <5 /hpf Urine Bacteria Few H None Seen /hpf Urine Mucus Few None Seen Urine Glucose Normal Normal mg/dL Hemoglobin A1c 5.6 <5.7 % A1C Direct Bilirubin 0.4 H <0.3 mg/dL Triglycerides Level 174 H < 150 mg/dL Cholesterol Level 166 < 200 mg/dL LDL Cholesterol 77 < 100 mg/dL HDL Cholesterol 45 40-59 mg/dL Lipase > 3500 H 12-53 U/L Vitamin D 25-Hydroxy 41.5 30.0-100 ng/mL Folic Acid 16.39 >5.38 ng/mL Examination: GENERAL:Normal, HEENT:Normal (No icterus), ABDOMEN:Abnormal (Mild distention, soft, depressible, no scars, no hernias, no masses, exquisite epigastric tenderness, no rebound, no guarding) Problem List/Assessment/Plan Problems: (1) Acute gallstone pancreatitis Assessment and Plan Mrs. Barber is a 50-year-old female who presented with gallstone pancreatitis. CT was reviewed and shows peripancreatic inflammation without fluid collections. There is also some fluid around the gallbladder likely due to the pancreatic inflammation passing through the foramina [place] and make it its way around the gallbladder. Lipase was over 3500, MRCP was negative for choledocholithiasis, and ultrasound showed gallstones with pericholecystic edema. All these findings point to gallstone pancreatitis. Patient will benefit from cholecystectomy during this admission, and the reason is that there is a 70-80% chance of getting a 2nd episode of pancreatitis within 2 months after discharge if the gallbladder is not removed. This was discussed with the patient. Procedure, risks, benefits, complications, and alternatives were discussed. Tentative surgery tomorrow, depending on patient's pain and distention. 1. Okay for liquid diet today 2. NPO at midnight 3. Possible OR tomorrow for laparoscopic cholecystectomy depending on patient's status 4. Out of bed and ambulate 5. Aggressive fluid resuscitation, goal urine output 1 cc/kg per hour Plan discussed with Plan discussed with: Patient Visit Coding Surgery Date of Service if different f: Aug 06, 2025 Billing Provider: ROSA PEREZ MD Surgery Visit Codes: [id number] - INP CONSULT <110 MIN ROSA PEREZ MD Aug 06, 2025 14:55
[2025-08-06] MEDS: HYDROmorphone HCL 2 MG/ML VL/or syr IV ONE (15:30)
[2025-08-06] MEDS: METOCLOPRAMIDE HCL 5MG/ml INJ 2ml VIAL IV ONE (15:36)
[2025-08-06] MEDS ORDERED: ONDANSETRON HCL 4 MG/2 ML VIAL IV PRN (17:30)
[2025-08-07] VITALS (7 sets, daily range): BP systolic 109–175; BP diastolic 60–89; PULSE 66–94; RESP 14–18; TEMP 97.8–99; O2SAT 94–99
[2025-08-07 07:28] LABS: Hematocrit 39.7 % (36.0-46.0); Hemoglobin 13.6 g/dL (12.2-16.2); Mean Corpuscular Hemoglobin 30.4 pg (28.0-32.0); Mean Corpuscular Volume 89.2 fL (80.0-100.0); Nucleated Red Blood Cells % 0.0 %
[2025-08-07 07:34] LABS: INR 1.06 (0.9-1.15); Partial Thromboplastin Time 29.5 SEC (24.5-34.5); Prothrombin Time 11.2 sec (9.3-11.8)
[2025-08-07 07:40] LABS: Alanine Aminotransferase 33 U/L (7-40); Albumin 4.1 g/dL (3.2-4.8); Alkaline Phosphatase 76 U/L (46-116); Anion Gap 10 (5-15); BUN/Creatinine Ratio 9.0 (10.0-20.0); Calcium 9.0 mg/dL (8.7-10.4); Carbon Dioxide 28 mmol/L (20-31); Chloride 105 mmol/L (98-107); Glucose 105 mg/dL (74-106); Magnesium 1.9 mg/dL (1.6-2.6); Sodium 143 mmol/L (136-145); Total Protein 6.7 g/dL (5.7-8.2)
[2025-08-07 07:45] LABS: Bilirubin, Total 1.5 mg/dL (0.2-1.0); Blood Urea Nitrogen 6 mg/dL (9-23); Potassium 3.3 mmol/L (3.5-5.1)
--- NOTE | 2025-08-07 08:33 | DVH ---
CHEST RADIOGRAPH Indication: SURGERY Technique: Single frontal view of the chest was obtained COMPARISON: None FINDINGS: Lines and Tubes: None Lungs: Clear Pleura: No effusion. No pneumothorax. Cardiomediastinal contours: Unremarkable Bones: Unremarkable IMPRESSION: No acute disease.
[2025-08-07] MEDS: ACETAMINOPHEN 325 MG TAB PO PRN (08:50)
--- NOTE | 2025-08-07 10:55 | DVHPN2 ---
Progress Note - Surgical Date Seen: Aug 07, 2025 Post op day Post op day: 0 Subjective Patient reports: Feels better (Abdominal pain improved some, less distended, no nausea, no vomiting, feeling hungry) Review of Systems: Deferred Objective Vital signs Vital Sign Date Time Temp Pulse Resp B/P (MAP) Pulse Ox O2 Delivery O2 Flow Rate FiO2 08/07/25 09:00 98.0 85 18 109/62 (78) 94 98.0 08/06/25 20:00 Room Air* 0 21 Total Intake and Output 08/06/25 08/06/25 08/07/25 15:00 23:00 07:00 Intake Total 50 ml 1180 ml Balance 50 ml 1180 ml Medications Current Medications Medications Dose Ordered Sig/Huy Route Start Time Stop Time Status Last Admin Dose Admin Pantoprazole Sodium 40 mg DAILY IV 08/05/25 20:55 08/07/25 08:50 40 MG Diagnostic Test (Pha) 1 strip Q6HR 08/05/25 18:00 08/07/25 06:23 1 STRIP Insulin Human Regular Q6HR SC 08/05/25 18:00 Dextrose 50 ml UD PRN IV 08/05/25 18:00 Ceftriaxone Sodium 50 ml @ 100 mls/hr DAILY@09 IV 08/05/25 20:45 08/07/25 08:49 100 MLS/HR Metronidazole 100 ml @ 100 mls/hr Q8HR IV 08/05/25 20:45 08/07/25 06:25 100 MLS/HR Morphine Sulfate 4 mg Q4HPRN PRN IV 08/05/25 21:00 08/06/25 05:16 4 MG Lactated Ringer's 1,000 ml @ 90 mls/hr Q11H7M IV 08/06/25 17:00 08/06/25 21:50 90 MLS/HR Acetaminophen 650 mg Q6HP PRN PO 08/06/25 15:00 08/07/25 08:50 650 MG Acetaminophen/ Hydrocodone Bitart 1 tab Q6HPRN PRN PO 08/06/25 15:15 Ondansetron HCl 4 mg Q6HPRN PRN IV 08/06/25 17:30 Laboratory Laboratory Tests 08/07/25 06:27 Test 08/07/25 06:27 Range/Units Serum Glucose 105 74-106 mg/dL Microbiology Date/Time Source Procedure Growth Status 08/06/25 01:00 Voided Urine Urine Culture - Preliminary Resulted Examination: GENERAL:Normal, HEENT:Normal (No icterus), ABDOMEN:Normal (Nondistended, soft, depressible, epigastric and right upper quadrant tenderness, no rebound, no guarding, no scars) Labs and/or images reviewed: Labs reviewed by me (No leukocytosis, slightly elevated total bilirubin level to 1.5) Problem List/Assessment/Plan Problems: (1) Acute gallstone pancreatitis Assessment and Plan Mrs. Barber is a 50-year-old female who presented with gallstone pancreatitis. CT was reviewed and shows peripancreatic inflammation without fluid collections. There is also some fluid around the gallbladder likely due to the pancreatic inflammation passing through the foramina [place] and make it its way around the gallbladder. Lipase was over 3500, MRCP was negative for choledocholithiasis, and ultrasound showed gallstones with pericholecystic edema. All these findings point to gallstone pancreatitis. Patient will benefit from cholecystectomy during this admission, and the reason is that there is a 70-80% chance of getting a 2nd episode of pancreatitis within 2 months after discharge if the gallbladder is not removed. This was discussed with the patient. Procedure, risks, benefits, complications, and alternatives were discussed. Tentative surgery tomorrow, depending on patient's pain and distention. Interval: Patient feeling slightly better today, now feeling hungry, abdominal distention went down some. We will give it 24 more hours of cooling down before surgery. We will plan to perform laparoscopic cholecystectomy tomorrow. 1. Okay for low-fat diet 2. NPO at midnight 3. On-call to OR tomorrow a.m. 4. Out of bed and ambulate 5. Aggressive fluid resuscitation, goal urine output 1 cc/kg per hour My Orders My Orders Orders - ROSA PEREZ MD Procedure Category Date Status Time Npo After Midnight MOISÉS 08/06/25 In Process 14:56 Regular Diet DIET 08/07/25 Transmitted Lunch Communication Order ORDERS 08/07/25 Transmitted 09:51 Plan discussed with Plan discussed with: Patient Visit Coding Surgery Date of Service if different f: Aug 07, 2025 Billing Provider: ROSA PEREZ MD Surgery Visit Codes: [id number] INP/OBS CARE(HIGH) ROSA PEREZ MD Aug 07, 2025 10:55
[2025-08-07] MEDS: POTASSIUM CHLORIDE 40 MEQ, LIDOCAINE 1% (LOCAL ANESTH.) 4 ML in SODIUM CHL 0.9% 250 ML IV ONE (13:21)
--- NOTE | 2025-08-07 13:48 | DVHPNRES ---
Progress Note Date Seen: Aug 07, 2025 Resident Creating Document: JM VANEGAS RESIDENT Medical Necessity Reason Pt with a Central, PICC or Fol: No Subjective Review of Systems Patient is 50 years old female with past medical history of diabetes mellitus on Ozempic, hyperlipidemia, knee pain came with a complaint of abdominal pain. As per patient she started having epigastric pain started on 0 07/22/25, 08/06, radiating to the back, intermittent, crampy or sharp in nature. As per patient pain is to go down to 5/10 and go away sometimes but from yesterday from 07/05/2025 patient's pain is persistent, in the epigastric region, associated nausea and vomiting 3 times, no blood. Patient also reported nonbloody diarrhea 2 times. Patient denied any fever, dysuria, acute joint redness or swelling, chest pain no shortness of breaths. Initial lab workup revealed leukocytosis with WBC 12.5, bilirubin 1.3, direct bilirubin 0.4, AST 54, ALT 54. Urinalysis revealed leukocyte esterase 1+, WBC 6, bacteria few. CT abdomen and pelvis- Subtle findings of acute pancreatitis.Mild nonspecific gallbladder mural thickening. In the setting of pancreatitis, consider recently passed stone. Please correlate with laboratory values. Mild colonic diverticulosis. Ultrasound of the liver revealed1. Cholelithiasis, thickened gallbladder wall, negative sonographic Hernández's sign. 16.7 cm liver with fatty changes of the parenchyma.3. 3 cm anechoic cortical lesion right kidney consistent with a cortical cyst. MRCP revealed- Acute pancreatitis. Cholelithiasis with mild gallbladder wall mural edema/wall thickening. Normal caliber biliary ductal system. No intraductal filling defect to suggest a stone. PMH-diabetes mellitus, hyperlipidemia, knee pain PSH- , annual surgery-could not specifically give the reason Allergy-and q.d. Personal History/ Social [id number], last smoking 5 years before, no drug abuse or alcohol abuse, lives with dad 08/06/25 Was seen today at bedside, labs and chart reviewed. Patient reported pain is improving, advance diet to clear liquid diet. MRCP revealed- Acute pancreatitis. Cholelithiasis with mild gallbladder wall mural edema/wall thickening. Normal caliber biliary ductal system. No intraductal filling defect to suggest a stone. Ordered surgery consult for further evaluation and care. Surgery recommended Possible OR tomorrow for laparoscopic cholecystectomy depending on patient's status. NPO after midnight. Ordered urine culture. 08/07/25: Patient was seen and examined by me at the bedside, labs and charts were reviewed. Patient reports feeling better. Urine culture preliminary shows >100,000 CFU/mL Gram Positive Belinda. 40 mEq IV potassium was repleted for levels of 3.3. Surgery today suggested: Patient feeling slightly better today, now feeling hungry, abdominal distention went down some. We will give it 24 more hours of cooling down before surgery. We will plan to perform laparoscopic cholecystectomy tomorrow. Okay for low-fat diet; NPO at midnight; On-call to OR tomorrow a.m.; Out of bed and ambulate; Aggressive fluid resuscitation, goal urine output 1 cc/kg per hour. We are giving the patient regular diet as per surgery and we will be keeping her NPO from midnight. Objective vital signs Vital Sign Date Time Temp Pulse Resp B/P (MAP) Pulse Ox O2 Delivery O2 Flow Rate FiO2 08/07/25 13:00 97.8 66 14 125/76 (92) 95 97.8 08/07/25 08:30 Room Air* 0 21 Total Intake and Output 08/06/25 08/06/25 08/07/25 15:00 23:00 07:00 Intake Total 50 ml 1180 ml Balance 50 ml 1180 ml medications Current Medications Medications Dose Ordered Sig/Huy Route Start Time Stop Time Status Last Admin Dose Admin Pantoprazole Sodium 40 mg DAILY IV 08/05/25 20:55 08/07/25 08:50 40 MG Diagnostic Test (Pha) 1 strip Q6HR 08/05/25 18:00 08/07/25 12:00 1 STRIP Insulin Human Regular Q6HR SC 08/05/25 18:00 Dextrose 50 ml UD PRN IV 08/05/25 18:00 Ceftriaxone Sodium 50 ml @ 100 mls/hr DAILY@09 IV 08/05/25 20:45 08/07/25 08:49 100 MLS/HR Metronidazole 100 ml @ 100 mls/hr Q8HR IV 08/05/25 20:45 08/07/25 06:25 100 MLS/HR Morphine Sulfate 4 mg Q4HPRN PRN IV 08/05/25 21:00 08/06/25 05:16 4 MG Lactated Ringer's 1,000 ml @ 90 mls/hr Q11H7M IV 08/06/25 17:00 08/06/25 21:50 90 MLS/HR Acetaminophen 650 mg Q6HP PRN PO 08/06/25 15:00 08/07/25 08:50 650 MG Acetaminophen/ Hydrocodone Bitart 1 tab Q6HPRN PRN PO 08/06/25 15:15 Ondansetron HCl 4 mg Q6HPRN PRN IV 08/06/25 17:30 Examination General examination- awake, alert, oriented HEENT- PEERLA, no acute nasal discharge Cardiovascular- S1-S2 audible, rate and rhythm regular, no murmur Respiratory- CTAB, no wheeze or rhonchi Gastrointestinal-epigastric tenderness+, Hernández's sign positive, bowel sound+. Nondistended Musculoskeletal-no acute joint swelling or tenderness or redness Lower extremity- no leg edema Neurological- cranial nerves intact, no acute dysarthria or dysphagia Psychiatry- denies depression or SI or HI Skin- no acute rash or purpura laboratory and microbiology Laboratory Tests 08/07/25 06:27 Test 08/07/25 06:27 Range/Units Serum Glucose 105 74-106 mg/dL Microbiology Date/Time Source Procedure Growth Status 08/06/25 01:00 Voided Urine Urine Culture - Preliminary Resulted Labs and/or images reviewed: Labs reviewed by me, Image(s) reviewed by me Problem List/Assessment/Plan Problem List/Assessment/Plan # acute gallstone pancreatitis # intractable abdominal pain with nausea and vomiting likely due to above # suspected acute cholecystitis # transaminitis # cholelithiasis, gallbladder wall thickening and edematous -leukocytosis with WBC 12.5 -CT scan finding subtle changes for acute pancreatitis -NPO after midnight -continue IV fluid as prescribed -ordered ceftriaxone g IV daily and metronidazole 500 mg q.8h -ultrasound of the liver for further evaluation and care-cholelithiasis, thickened gallbladder wall, Hernández sign negative, no CBD dilatation. -MRCP revealed- Acute pancreatitis. Cholelithiasis with mild gallbladder wall mural edema/wall thickening. Normal caliber biliary ductal system. No intraductal filling defect to suggest a stone. -continue current pain management - surgery consult -recommended for Possible OR tomorrow for laparoscopic cholecystectomy depending on patient's status - surgery on 08/07/25 suggested: Patient feeling slightly better today, now feeling hungry, abdominal distention went down some. We will give it 24 more hours of cooling down before surgery. We will plan to perform laparoscopic cholecystectomy tomorrow. Okay for low-fat diet; NPO at midnight; On-call to OR tomorrow a.m.; Out of bed and ambulate; Aggressive fluid resuscitation, goal urine output 1 cc/kg per hour # UTI -ordered urine culture -continue current antibiotic # diabetes mellitus type 2 -insulin sliding scale # hyperlipidemia -triglyceride 174 # obesity, -patient was counseled about the effect of obesity, low-fat diet, physical activity as tolerated, weight reduction PUD prophylaxis: Pantoprazole DVT prophylaxis: Lovenox Plan discussed with Dr. Michele , nursing staff, Total time spent on patient evaluation, chart review, assessment and plan, discussion discussion >35 minutes Plan discussed with: Patient My Orders My Orders Orders - JM VANEGAS Procedure Category Date Status Time Npo After Midnight MOISÉS 08/07/25 Transmitted 13:39 Npo (Nothing By DIET 08/08/25 Transmitted Mouth) Diet Breakfast Date of Service: Aug 07, 2025 Billing Provider: CHAN MICHELE MD, SREYA RESIDENT Aug 07, 2025 13:48
[2025-08-08] VITALS (9 sets, daily range): BP systolic 107–129; BP diastolic 52–77; PULSE 78–88; RESP 12–20; TEMP 98–98.8; O2SAT 92–98
[2025-08-08 06:27] LABS: Hematocrit 40.4 % (36.0-46.0); Hemoglobin 13.7 g/dL (12.2-16.2); Mean Corpuscular Hemoglobin 30.6 pg (28.0-32.0); Mean Corpuscular Volume 90.3 fL (80.0-100.0); Nucleated Red Blood Cells % 0.1 %
[2025-08-08 06:50] LABS: Alanine Aminotransferase 25 U/L (7-40); Alkaline Phosphatase 72 U/L (46-116); Anion Gap 13 (5-15); BUN/Creatinine Ratio 11.1 (10.0-20.0); Calcium 9.0 mg/dL (8.7-10.4); Carbon Dioxide 24 mmol/L (20-31); Chloride 106 mmol/L (98-107); Glucose 85 mg/dL (74-106); Sodium 143 mmol/L (136-145); Total Protein 6.5 g/dL (5.7-8.2)
[2025-08-08 06:51] LABS: Albumin 4.0 g/dL (3.2-4.8)
[2025-08-08 06:52] LABS: Bilirubin, Direct 0.4 mg/dL (<0.3); Bilirubin, Total 1.5 mg/dL (0.2-1.0); Blood Urea Nitrogen 7 mg/dL (9-23); Potassium 3.3 mmol/L (3.5-5.1)
--- NOTE | 2025-08-08 09:37 | ECG ---
[facility] Test Date: 2025-08-06 Test Time: 16:18:17 Pat Name: RAGHAV GARCIA Department: Room: 0281 A Gender: F [employer] Operator: HADLEY. : 1975 Requested By: MARISA MOY Order Number: [id number] Reading MD: Fritz Nash Measurements Intervals [place] Rate: 83 P: 64 WA: 182 QRS: 23 QRSD: 88 T: 57 QT: 364 QTc: 428 Interpretive Statements Sinus rhythm Electronically Signed On 08-10-2025 15:04:36 PDT by Fritz Nash Please click the below link to view image of tracing.
--- NOTE | 2025-08-08 10:13 | DVHPN2 ---
Progress Note - Surgical Date Seen: Aug 08, 2025 Post op day Post op day: 0 Subjective Patient reports: Feels better (Patient is feeling better, pain much improved, bloating improved, no nausea, no vomiting.) Review of Systems: Deferred Objective Vital signs Vital Sign Date Time Temp Pulse Resp B/P (MAP) Pulse Ox O2 Delivery O2 Flow Rate FiO2 08/08/25 09:02 98.4 85 20 107/52 (70) 96 98.4 08/07/25 20:00 Room Air* 0 21 Total Intake and Output 08/07/25 08/07/25 08/08/25 15:00 23:00 07:00 Intake Total 150 ml 820 ml 1100 ml Balance 150 ml 820 ml 1100 ml Medications Current Medications Medications Dose Ordered Sig/Huy Route Start Time Stop Time Status Last Admin Dose Admin Pantoprazole Sodium 40 mg DAILY IV 08/05/25 20:55 08/08/25 09:42 40 MG Diagnostic Test (Pha) 1 strip Q6HR 08/05/25 18:00 08/08/25 05:58 1 STRIP Insulin Human Regular Q6HR SC 08/05/25 18:00 Dextrose 50 ml UD PRN IV 08/05/25 18:00 Ceftriaxone Sodium 50 ml @ 100 mls/hr DAILY@09 IV 08/05/25 20:45 08/08/25 09:42 100 MLS/HR Metronidazole 100 ml @ 100 mls/hr Q8HR IV 08/05/25 20:45 08/08/25 05:58 100 MLS/HR Morphine Sulfate 4 mg Q4HPRN PRN IV 08/05/25 21:00 08/06/25 05:16 4 MG Lactated Ringer's 1,000 ml @ 90 mls/hr Q11H7M IV 08/06/25 17:00 08/08/25 06:13 90 MLS/HR Acetaminophen 650 mg Q6HP PRN PO 08/06/25 15:00 08/07/25 22:23 650 MG Acetaminophen/ Hydrocodone Bitart 1 tab Q6HPRN PRN PO 08/06/25 15:15 Ondansetron HCl 4 mg Q6HPRN PRN IV 08/06/25 17:30 Potassium Chloride 100 ml @ 50 mls/hr Q2H IV 08/08/25 07:15 08/08/25 11:14 Laboratory Laboratory Tests 08/08/25 05:26 Test 08/08/25 05:26 Range/Units Serum Glucose 85 74-106 mg/dL Microbiology Date/Time Source Procedure Growth Status 08/06/25 01:00 Voided Urine Urine Culture - Preliminary Resulted Examination: GENERAL:Normal, HEENT:Normal (No icterus), ABDOMEN:Normal (Nondistended, soft, depressible, nontender) Labs and/or images reviewed: Labs reviewed by me (No leukocytosis, no direct bilirubin elevation) Problem List/Assessment/Plan Assessment and Plan Mrs. Barber is a 50-year-old female who presented with gallstone pancreatitis. CT was reviewed and shows peripancreatic inflammation without fluid collections. There is also some fluid around the gallbladder likely due to the pancreatic inflammation passing through the foramina Haley and make it its way around the gallbladder. Lipase was over 3500, MRCP was negative for choledocholithiasis, and ultrasound showed gallstones with pericholecystic edema. All these findings point to gallstone pancreatitis. Patient will benefit from cholecystectomy during this admission, and the reason is that there is a 70-80% chance of getting a 2nd episode of pancreatitis within 2 months after discharge if the gallbladder is not removed. This was discussed with the patient. Procedure, risks, benefits, complications, and alternatives were discussed. Tentative surgery tomorrow, depending on patient's pain and distention. Interval: Patient feeling good this morning, less pain, less bloated. We will proceed with laparoscopic cholecystectomy today. 1. On-call to OR, today for laparoscopic cholecystectomy, possible open 2. NPO 3. Out of bed and ambulate 4. Pain and nausea control Plan discussed with Plan discussed with: Patient Visit Coding Surgery Date of Service if different f: Aug 08, 2025 Billing Provider: ROSA PEREZ MD Surgery Visit Codes: [id number] INP/OBS CARE(HIGH) ROSA PEREZ MD Aug 08, 2025 10:13
[2025-08-08] MEDS: POTASSIUM CHL 20MEQ/100ML 100 ML IV SCH (11:46)
--- NOTE | 2025-08-08 12:25 | DVH ---
CHEST RADIOGRAPH Indication: preop clearance Technique: Single frontal view of the chest was obtained Comparison: XY CHEST XRAY 1 VIEW on DOS: 08/07/25 FINDINGS: Lines and Tubes: None Lungs: No focal consolidation. Pleura: No effusion. No pneumothorax. Cardiomediastinal contours: Unremarkable Bones: No acute osseous abnormality. IMPRESSION: 1. No acute cardiopulmonary disease. 2. No significant change from 08/07/2025
[2025-08-08] MEDS ORDERED: LIDOCAINE 2% (LOCAL ANESTH.) PF 5ml SDV ONE (13:19)
[2025-08-08] MEDS ORDERED: PROPOFOL 10 MG/ML 20 ML IV ONE (13:19)
[2025-08-08] MEDS ORDERED: fentaNYL CITRATE 100 MCG/2 ML VL ONE ×2 (13:24→13:33)
[2025-08-08] MEDS ORDERED: MIDAZOLAM HCL 2MG/2ML 2ml VIAL (1mg/ml) ONE (13:33)
--- NOTE | 2025-08-08 13:37 | DVHPNRES ---
Progress Note Date Seen: Aug 08, 2025 Resident Creating Document: MARISA MOY RESIDENT Medical Necessity Reason Pt with a Central, PICC or Fol: No Subjective Review of Systems Patient is 50 years old female with past medical history of diabetes mellitus on Ozempic, hyperlipidemia, knee pain came with a complaint of abdominal pain. As per patient she started having epigastric pain started on 0 07/22/25, /, radiating to the back, intermittent, crampy or sharp in nature. As per patient pain is to go down to 5/10 and go away sometimes but from yesterday from 07/05/2025 patient's pain is persistent, in the epigastric region, associated nausea and vomiting 3 times, no blood. Patient also reported nonbloody diarrhea 2 times. Patient denied any fever, dysuria, acute joint redness or swelling, chest pain no shortness of breaths. Initial lab workup revealed leukocytosis with WBC 12.5, bilirubin 1.3, direct bilirubin 0.4, AST 54, ALT 54. Urinalysis revealed leukocyte esterase 1+, WBC 6, bacteria few. CT abdomen and pelvis- Subtle findings of acute pancreatitis.Mild nonspecific gallbladder mural thickening. In the setting of pancreatitis, consider recently passed stone. Please correlate with laboratory values. Mild colonic diverticulosis. Ultrasound of the liver revealed1. Cholelithiasis, thickened gallbladder wall, negative sonographic Hernández's sign. 16.7 cm liver with fatty changes of the parenchyma.3. 3 cm anechoic cortical lesion right kidney consistent with a cortical cyst. MRCP revealed- Acute pancreatitis. Cholelithiasis with mild gallbladder wall mural edema/wall thickening. Normal caliber biliary ductal system. No intraductal filling defect to suggest a stone. PMH-diabetes mellitus, hyperlipidemia, knee pain PSH- , annual surgery-could not specifically give the reason Allergy-and q.d. Personal History/ Social [id number], last smoking 5 years before, no drug abuse or alcohol abuse, lives with dad Was seen today at bedside, labs and chart reviewed. Patient reported pain is improving. Patient is seen by surgery, plan is to proceed with laparoscopic cholecystectomy today as per surgeon. Objective vital signs Vital Sign Date Time Temp Pulse Resp B/P (MAP) Pulse Ox O2 Delivery O2 Flow Rate FiO2 08/08/25 09:02 98.4 85 20 107/52 (70) 96 98.4 08/07/25 20:00 Room Air* 0 21 Total Intake and Output 08/07/25 08/07/25 08/08/25 15:00 23:00 07:00 Intake Total 150 ml 820 ml 1100 ml Balance 150 ml 820 ml 1100 ml medications Current Medications Medications Dose Ordered Sig/Huy Route Start Time Stop Time Status Last Admin Dose Admin Pantoprazole Sodium 40 mg DAILY IV 08/05/25 20:55 08/08/25 09:42 40 MG Diagnostic Test (Pha) 1 strip Q6HR 08/05/25 18:00 08/08/25 12:05 1 STRIP Insulin Human Regular Q6HR SC 08/05/25 18:00 Dextrose 50 ml UD PRN IV 08/05/25 18:00 Ceftriaxone Sodium 50 ml @ 100 mls/hr DAILY@09 IV 08/05/25 20:45 08/08/25 09:42 100 MLS/HR Metronidazole 100 ml @ 100 mls/hr Q8HR IV 08/05/25 20:45 08/08/25 05:58 100 MLS/HR Morphine Sulfate 4 mg Q4HPRN PRN IV 08/05/25 21:00 08/06/25 05:16 4 MG Lactated Ringer's 1,000 ml @ 90 mls/hr Q11H7M IV 08/06/25 17:00 08/08/25 06:13 90 MLS/HR Acetaminophen 650 mg Q6HP PRN PO 08/06/25 15:00 08/07/25 22:23 650 MG Acetaminophen/ Hydrocodone Bitart 1 tab Q6HPRN PRN PO 08/06/25 15:15 Ondansetron HCl 4 mg Q6HPRN PRN IV 08/06/25 17:30 Examination General examination- awake, alert, oriented HEENT- PEERLA, no acute nasal discharge Cardiovascular- S1-S2 audible, rate and rhythm regular, no murmur Respiratory- CTAB, no wheeze or rhonchi Gastrointestinal-epigastric tenderness+, Hernández's sign positive, bowel sound+. Nondistended Musculoskeletal-no acute joint swelling or tenderness or redness Lower extremity- no leg edema Neurological- cranial nerves intact, no acute dysarthria or dysphagia Psychiatry- denies depression or SI or HI Skin- no acute rash or purpura laboratory and microbiology Laboratory Tests 08/08/25 05:26 Test 08/08/25 05:26 Range/Units Serum Glucose 85 74-106 mg/dL Microbiology Date/Time Source Procedure Growth Status 08/06/25 01:00 Voided Urine Urine Culture - Final Enterococcus faecalis Complete Problem List/Assessment/Plan Problem List/Assessment/Plan Assessment and plan-patient with acute gallstone pancreatitis, symptoms improving, status post surgery consult, recommended for possible laparoscopic cholecystectomy tomorrow NPO after midnight # acute gallstone pancreatitis # intractable abdominal pain with nausea and vomiting likely due to above # suspected acute cholecystitis # transaminitis # cholelithiasis, gallbladder wall thickening and edematous -leukocytosis with WBC 12.5 -CT scan finding subtle changes for acute pancreatitis -continue IV fluid as prescribed -ordered ceftriaxone g IV daily and metronidazole 500 mg q.8h -ultrasound of the liver for further evaluation and care-cholelithiasis, thickened gallbladder wall, Hernández sign negative, no CBD dilatation. -MRCP revealed- Acute pancreatitis. Cholelithiasis with mild gallbladder wall mural edema/wall thickening. Normal caliber biliary ductal system. No intraductal filling defect to suggest a stone. -continue current pain management - surgery consult -recommended for Possible laparoscopic cholecystectomy today # UTI - urine culture E coli -continue current antibiotic # diabetes mellitus type 2 -insulin sliding scale # hyperlipidemia -triglyceride 174 # obesity, -patient was counseled about the effect of obesity, low-fat diet, physical activity as tolerated, weight reduction Goals of care, Code status full ; discussed with >15 minutes PUD prophylaxis: Pantoprazole DVT prophylaxis: SCD Plan discussed with Dr. Michele , nursing staff, Total time spent on patient evaluation, chart review, assessment and plan, discussion discussion >35 minutes Plan discussed with: Patient, Daughter, Other (R Plan discussed with: Patient, Son (RN), Other Date of Service: Aug 08, 2025 Billing Provider: CHAN MICHELE MD, MOHAMMED RESIDENT Aug 08, 2025 13:37
[2025-08-08] MEDS: BUPIVACAINE 0.25% INJ 50ML VIAL ONE (13:41)
[2025-08-08] MEDS ORDERED: ONDANSETRON HCL 4 MG/2 ML VIAL IV PRN (14:00)
[2025-08-08] MEDS ORDERED: HYDROmorphone HCL 2 MG/ML VL/or syr IV PRN ×2 (14:00)
[2025-08-08] MEDS ORDERED: ONDANSETRON HCL 4 MG/2 ML VIAL ONE (14:11)
[2025-08-08] MEDS ORDERED: ROCURONIUM 10MG/ML 10ML VIAL IV ONE (14:11)
[2025-08-08] MEDS ORDERED: HYDROmorphone HCL 2 MG/ML VL/or syr ONE (14:36)
--- NOTE | 2025-08-08 14:49 | DVHOP2 ---
Operative Report - 2 Report Details Date: 08/08/25 Preop Diagnosis: Gallstone pancreatitis Postop Diagnosis: Same Surgeon: Mauri Celaya MD Anesthesiologist: Dr. Love Anesthesia: General Consent: The patient was informed of the risks and benefits of the procedure. These include but are not limited to complications of anesthesia, postoperative infection, incomplete relief of symptoms, recurrence of symptoms, damage to blood vessels, nerves and tendons, deep venous thrombosis, pulmonary embolism and possible need for repeat surgery in the future. Complications: None Estimated Blood Loss: 5 mL Findings: Normal-appearing gallbladder with thin omental adhesions. Fatty liver Indications for Surgery: Gallstone pancreatitis Name of Procedure Performed Laparoscopic cholecystectomy Procedure Details Procedure Details: Upon arriving to the operating room the patient was transferred to the operating table and placed in the supine position with arms extended. General endotracheal anesthesia was induced. Time-out was observed. Patient was prepped and draped in the standard sterile surgical fashion with chlorhexidine. I then proceeded to make a curvilinear infraumbilical incision and carried it down to fascia. Once at the fascia I then grasped with a Danita clamp the umbilical stalk and walked it down to its base. Once at the base , I placed a 2nd Danita clamp in the fascia immediately below the base of the umbilical stalk. I then elevated both Danita clamps and made a transverse incision in the fascia. I then placed a fascial retention stitch in [id number] fashion with 0 Vicryl. I then inserted the Gregory trocar and insufflated the peritoneal cavity to 15 mmHg with toleration. I then inserted a 30 degree 10 mm camera and inspected the entry site, no injuries. Patient was then placed in the reverse Trendelenburg position with right side up. I then placed 3 additional 5 mm ports under direct vision at the epigastric area, right midclavicular subcostal area, and right flank area. I then directed my attention to the liver and gallbladder. The liver was enlarged with fatty changes. The gallbladder was then grasped at the fundus with a grasper and retracted cephalad and towards the right shoulder. I then noticed some thin omental adhesions to the gallbladder, adhesions were taken down both bluntly and with cautery. Gallbladder appeared normal without inflammatory changes. I then proceeded to place a 2nd grasper at the infundibulum and retracted laterally. This exposed Calot triangle. I then incised the peritoneum on either side of the gallbladder at its base and carried down to the liver. I then fully skeletonized cholesterol angle, and was able to note 2 structures entering the gallbladder. I then fully skeletonize this were structures, cystic duct and cystic artery. Critical view was obtained. Cystic duct was then milked for any stones, non felt. Cystic duct was then clipped 3 times proximal with 5 mm clips and 1 time distal. Cystic duct was then transected. The cystic artery was then doubly clipped proximal and 1 distal. Cystic artery was then transected. I then utilized cautery to dissect the gallbladder off of the liver bed. I had some stone in bile spillage due to rip in the gallbladder at the fundus grasper site. Once the gallbladder was completely off of the liver was placed in the Endo-Catch bag and removed from the peritoneal cavity through the umbilical port site. I then directed my attention back to the gallbladder fossa and liver area. I then proceeded to serially irrigate and suctioned all of the bile and stones until effluent was clear. I then again inspected the gallbladder fossa, I had to cauterize a small area on the lateral border, hemostasis achieved. I then inspected the clips and they were in place. I then reinspected the fossa under the liver and over the liver no more stones or bile noted. This concluded the intraperitoneal portion of the procedure. I then removed the 3 5 mm ports under direct vision, no bleeding from abdominal wall. Peritoneal cavity was allowed to desufflate. Previous retention stitch on fascia was closed. All counts complete and correct. All skin sites were closed with 4-0 Monocryl and Dermabond. 0.25% Marcaine was used as local anesthetic. Patient tolerated the procedure well and was transferred to PACU in stable condition. Specimen: Gallbladder and contents Condition Stable Disposition Still a Patient MAURI PEREZ MD Aug 08, 2025 14:49
[2025-08-08] MEDS ORDERED: NEOSTIGMINE 1 MG/ML INJ (10mg/10ML VIAL) ONE (14:57)
[2025-08-08] MEDS ORDERED: GLYCOPYRROLATE 0.2 MG/ML 1ML VIAL ONE (14:57)
[2025-08-08] MEDS ORDERED: HYDROcodone-ACET 10/325MG TAB PO PRN (15:00)
[2025-08-08] MEDS: ACETAMINOPHEN 325 MG TAB PO SCH (16:26)
[2025-08-08] MEDS: IBUPROFEN 600 MG TAB PO SCH (22:41)
[2025-08-09] VITALS (7 sets, daily range): BP systolic 96–136; BP diastolic 42–78; PULSE 77–88; RESP 16–20; TEMP 97.9–98.7; O2SAT 91–98
[2025-08-09 07:16] LABS: Hematocrit 39.0 % (36.0-46.0); Hemoglobin 13.5 g/dL (12.2-16.2); Mean Corpuscular Hemoglobin 31.0 pg (28.0-32.0); Mean Corpuscular Volume 89.9 fL (80.0-100.0); Nucleated Red Blood Cells % 0.0 %
[2025-08-09 07:23] LABS: Albumin 3.9 g/dL (3.2-4.8); Anion Gap 8 (5-15); BUN/Creatinine Ratio 9.7 (10.0-20.0); Calcium 8.8 mg/dL (8.7-10.4); Carbon Dioxide 28 mmol/L (20-31); Chloride 105 mmol/L (98-107); Glucose 84 mg/dL (74-106); Magnesium 1.9 mg/dL (1.6-2.6); Potassium 3.6 mmol/L (3.5-5.1); Sodium 141 mmol/L (136-145); Total Protein 6.3 g/dL (5.7-8.2)
[2025-08-09 07:25] LABS: Bilirubin, Total 1.2 mg/dL (0.2-1.0)
[2025-08-09 07:27] LABS: Alanine Aminotransferase 83 U/L (7-40); Alkaline Phosphatase 118 U/L (46-116); Bilirubin, Direct 0.4 mg/dL (<0.3); Blood Urea Nitrogen 7 mg/dL (9-23)
[2025-08-09] MEDS: POLYETHYLENE GLYCOL 17 GM PWDR PO SCH (11:16)
--- NOTE | 2025-08-09 13:05 | DVHPN2 ---
Progress Note - Surgical Date Seen: Aug 09, 2025 Post op day Post op day: 1 Subjective Patient reports: Feels better (Patient feeling much better, epigastric pain has much improved, tolerating diet.) Review of Systems: Deferred Objective Vital signs Vital Sign Date Time Temp Pulse Resp B/P (MAP) Pulse Ox O2 Delivery O2 Flow Rate FiO2 08/09/25 09:00 98.4 77 20 120/65 (83) 96 98.4 08/08/25 20:00 Room Air* 0 21 Total Intake and Output 08/08/25 08/08/25 08/09/25 15:00 23:00 07:00 Intake Total 150 ml 1230 ml 415 ml Output Total 1000 ml Balance 150 ml 1230 ml -585 ml Medications Current Medications Medications Dose Ordered Sig/Huy Route Start Time Stop Time Status Last Admin Dose Admin Pantoprazole Sodium 40 mg DAILY IV 08/05/25 20:55 08/09/25 11:16 40 MG Diagnostic Test (Pha) 1 strip Q6HR 08/05/25 18:00 08/09/25 06:00 1 STRIP Insulin Human Regular Q6HR SC 08/05/25 18:00 Dextrose 50 ml UD PRN IV 08/05/25 18:00 Ceftriaxone Sodium 50 ml @ 100 mls/hr DAILY@09 IV 08/05/25 20:45 08/09/25 11:16 100 MLS/HR Metronidazole 100 ml @ 100 mls/hr Q8HR IV 08/05/25 20:45 08/09/25 06:37 100 MLS/HR Morphine Sulfate 4 mg Q4HPRN PRN IV 08/05/25 21:00 08/06/25 05:16 4 MG Lactated Ringer's 1,000 ml @ 90 mls/hr Q11H7M IV 08/06/25 17:00 08/08/25 06:13 90 MLS/HR Acetaminophen/ Hydrocodone Bitart 1 tab Q6HPRN PRN PO 08/06/25 15:15 Ondansetron HCl 4 mg Q6HPRN PRN IV 08/06/25 17:30 Acetaminophen 650 mg Q6HR PO 08/08/25 15:00 08/09/25 11:16 650 MG Acetaminophen/ Hydrocodone Bitart 1 tab Q6HP PRN PO 08/08/25 15:00 Polyethylene Glycol 17 gm DAILY PO 08/09/25 10:00 08/09/25 11:16 17 GM Ibuprofen 600 mg TID PO 08/08/25 22:00 08/09/25 06:27 600 MG Laboratory Laboratory Tests 08/09/25 04:50 Test 08/09/25 04:50 Range/Units Serum Glucose 84 74-106 mg/dL Microbiology Date/Time Source Procedure Growth Status 08/06/25 01:00 Voided Urine Urine Culture - Final Enterococcus faecalis Complete Examination: GENERAL:Normal, HEENT:Normal (No icterus), ABDOMEN:Normal (Large pannus, nondistended, soft, depressible, incision sites with skin glue in place and without surrounding signs of infection, infraumbilical ecchymosis, appropriate tenderness) Labs and/or images reviewed: Labs reviewed by me (Hemoglobin within normal limits, elevated total bilirubin but direct component is normal.) Problem List/Assessment/Plan Assessment and Plan Mrs. Barber is a 50-year-old female who presented with gallstone pancreatitis. CT was reviewed and shows peripancreatic inflammation without fluid collections. There is also some fluid around the gallbladder likely due to the pancreatic inflammation passing through the foramina Campbell and make it its way around the gallbladder. Lipase was over 3500, MRCP was negative for choledocholithiasis, and ultrasound showed gallstones with pericholecystic edema. All these findings point to gallstone pancreatitis. Patient will benefit from cholecystectomy during this admission, and the reason is that there is a 70-80% chance of getting a 2nd episode of pancreatitis within 2 months after discharge if the gallbladder is not removed. This was discussed with the patient. Procedure, risks, benefits, complications, and alternatives were discussed. Tentative surgery tomorrow, depending on patient's pain and distention. Interval: Patient is currently postop day 1 after laparoscopic cholecystectomy for gallstone pancreatitis. Patient doing well this morning, ambulating, tolerating diet, with minimal pain. LFTs showed total bilirubin of 1 0.2 with a direct component of 0.4. Patient's culture for discharge per surgical standpoint. 1. Cleared for discharge per surgical standpoint 2. Low-fat diet 3. No lifting over 10 lb for 6-8 weeks 4. May shower today, soap and water okay to run over incision sites 5. No bathing or swimming for 2 weeks 6. Baseline pain control with Tylenol and/or ibuprofen, follow hide grader's directions 7. Rowena 5-325 mg 1 tab p.o. every 6 hours p.r.n. severe pain 8. No driving while taking narcotics 9. Follow-up with Dr. Newton at surgery [facility] in 2 weeks My Orders My Orders Orders - ROSA PEREZ MD Procedure Category Date Status Time Acetaminophen Tablet PHA 08/08/25 In Process (Tylenol Tablet) 15:00 Hydrocodone-Acet PHA 08/08/25 In Process 10/325mg Tab (Rowena 15:00 Polyethylene Glycol PHA 08/09/25 In Process 17g Powder (Miralax 10:00 Ibuprofen Tablet PHA 08/08/25 In Process (Motrin Tablet) 22:00 Cardiac DIET 08/08/25 Transmitted Diet-2gna,Lofat,Lochol Dinner Plan discussed with Plan discussed with: Patient, Spouse Visit Coding Surgery Date of Service if different f: Aug 09, 2025 Billing Provider: ROSA PEREZ MD Surgery Visit Codes: [id number] INP/OBS CARE(HIGH) ROSA PEREZ MD Aug 09, 2025 13:05
--- NOTE | 2025-08-09 17:31 | DVHPNRES ---
Progress Note Date Seen: Aug 09, 2025 Resident Creating Document: MARISA MOY RESIDENT Medical Necessity Reason Pt with a Central, PICC or Fol: No Subjective Review of Systems Patient is 50 years old female with past medical history of diabetes mellitus on Ozempic, hyperlipidemia, knee pain came with a complaint of abdominal pain. As per patient she started having epigastric pain started on 0 07/22/25, 10/, radiating to the back, intermittent, crampy or sharp in nature. As per patient pain is to go down to 5/10 and go away sometimes but from yesterday from 07/05/2025 patient's pain is persistent, in the epigastric region, associated nausea and vomiting 3 times, no blood. Patient also reported nonbloody diarrhea 2 times. Patient denied any fever, dysuria, acute joint redness or swelling, chest pain no shortness of breaths. Initial lab workup revealed leukocytosis with WBC 12.5, bilirubin 1.3, direct bilirubin 0.4, AST 54, ALT 54. Urinalysis revealed leukocyte esterase 1+, WBC 6, bacteria few. CT abdomen and pelvis- Subtle findings of acute pancreatitis.Mild nonspecific gallbladder mural thickening. In the setting of pancreatitis, consider recently passed stone. Please correlate with laboratory values. Mild colonic diverticulosis. Ultrasound of the liver revealed1. Cholelithiasis, thickened gallbladder wall, negative sonographic Hernández's sign. 16.7 cm liver with fatty changes of the parenchyma.3. 3 cm anechoic cortical lesion right kidney consistent with a cortical cyst. MRCP revealed- Acute pancreatitis. Cholelithiasis with mild gallbladder wall mural edema/wall thickening. Normal caliber biliary ductal system. No intraductal filling defect to suggest a stone. PMH-diabetes mellitus, hyperlipidemia, knee pain PSH- , annual surgery-could not specifically give the reason Allergy-and q.d. Personal History/ Social [id number], last smoking 5 years before, no drug abuse or alcohol abuse, lives with dad Was seen today at bedside, labs and chart reviewed. Patient reported pain is improving. Passed flatus. Advanced diet mechanical soft diet. Plan is to discharge tomorrow. Objective vital signs Vital Sign Date Time Temp Pulse Resp B/P (MAP) Pulse Ox O2 Delivery O2 Flow Rate FiO2 08/09/25 16:41 98.7 79 20 113/42 (65) 92 98.7 08/09/25 08:00 Room Air* 0 21 Total Intake and Output 08/08/25 08/08/25 08/09/25 15:00 23:00 07:00 Intake Total 150 ml 1230 ml 415 ml Output Total 1000 ml Balance 150 ml 1230 ml -585 ml medications Current Medications Medications Dose Ordered Sig/Huy Route Start Time Stop Time Status Last Admin Dose Admin Pantoprazole Sodium 40 mg DAILY IV 08/05/25 20:55 08/09/25 11:16 40 MG Diagnostic Test (Pha) 1 strip Q6HR 08/05/25 18:00 08/09/25 12:00 1 STRIP Insulin Human Regular Q6HR SC 08/05/25 18:00 Dextrose 50 ml UD PRN IV 08/05/25 18:00 Ceftriaxone Sodium 50 ml @ 100 mls/hr DAILY@09 IV 08/05/25 20:45 08/09/25 11:16 100 MLS/HR Metronidazole 100 ml @ 100 mls/hr Q8HR IV 08/05/25 20:45 08/09/25 14:56 100 MLS/HR Morphine Sulfate 4 mg Q4HPRN PRN IV 08/05/25 21:00 08/06/25 05:16 4 MG Lactated Ringer's 1,000 ml @ 90 mls/hr Q11H7M IV 08/06/25 17:00 08/08/25 06:13 90 MLS/HR Acetaminophen/ Hydrocodone Bitart 1 tab Q6HPRN PRN PO 08/06/25 15:15 Ondansetron HCl 4 mg Q6HPRN PRN IV 08/06/25 17:30 Acetaminophen 650 mg Q6HR PO 08/08/25 15:00 08/09/25 11:16 650 MG Acetaminophen/ Hydrocodone Bitart 1 tab Q6HP PRN PO 08/08/25 15:00 Polyethylene Glycol 17 gm DAILY PO 08/09/25 10:00 08/09/25 11:16 17 GM Ibuprofen 600 mg TID PO 08/08/25 22:00 08/09/25 14:56 600 MG laboratory and microbiology Laboratory Tests 08/09/25 04:50 Test 08/09/25 04:50 Range/Units Serum Glucose 84 74-106 mg/dL Microbiology Date/Time Source Procedure Growth Status 08/06/25 01:00 Voided Urine Urine Culture - Final Enterococcus faecalis Complete Problem List/Assessment/Plan Problem List/Assessment/Plan Assessment and plan-patient with acute gallstone pancreatitis, symptoms improving, status post surgery consult, recommended for possible laparoscopic cholecystectomy tomorrow NPO after midnight # acute gallstone pancreatitis # intractable abdominal pain with nausea and vomiting likely due to above # suspected acute cholecystitis # transaminitis # cholelithiasis, gallbladder wall thickening and edematous -leukocytosis with WBC 12.5 -CT scan finding subtle changes for acute pancreatitis -continue IV fluid as prescribed -ordered ceftriaxone g IV daily and metronidazole 500 mg q.8h -ultrasound of the liver for further evaluation and care-cholelithiasis, thickened gallbladder wall, Hernández sign negative, no CBD dilatation. -MRCP revealed- Acute pancreatitis. Cholelithiasis with mild gallbladder wall mural edema/wall thickening. Normal caliber biliary ductal system. No intraductal filling defect to suggest a stone. -continue current pain management - surgery consult S/P laparoscopic cholecystectomy today -advance diet to mechanical soft # UTI - urine culture Enterococcus faecalis -continue current antibiotic # diabetes mellitus type 2 -insulin sliding scale # hyperlipidemia -triglyceride 174 # obesity, -patient was counseled about the effect of obesity, low-fat diet, physical activity as tolerated, weight reduction Goals of care, Code status full ; discussed with >15 minutes PUD prophylaxis: Pantoprazole DVT prophylaxis: SCD Plan discussed with Dr. Michele , nursing staff, Total time spent on patient evaluation, chart review, assessment and plan, discussion discussion >35 minutes Plan discussed with: Patient, Daughter, Other (R Plan discussed with: Patient, Other (RN) Dietary Evaluation Review Recommendations by RD: Dietary education by RD Comments: 1) If patient remains NPO > 7 days, consider EN/TPN to meet at least 75% estimated daily needs 2) Advance to 45g CCHO cardiac diet when medically feasible 3) Refer to RD/CDCES for weight management 4) Follow-up with gastroenterology 5) Continue to monitor I&O, labs, and skin integrity Expected Outcomes/Goals: 1) labs to improve 2) diet to advance 3) gradual wt loss 4) f/u in 3-5 days Date of Service: Aug 09, 2025 Billing Provider: CHAN MICHELE MD,[facility]OLOR[facility]ICO[facility] RESIDENT Aug 09, 2025 17:31
[2025-08-10 01:02] VITALS: BP 104/56; PULSE 89; RESP 18; TEMP 97.9; O2SAT 91
[2025-08-10] MEDS: HYDROcodone-ACET 5/325MG TAB PO PRN (03:44)
[2025-08-10 05:00] VITALS: BP 110/73; PULSE 79; RESP 20; TEMP 98.3; O2SAT 100
[2025-08-10 07:10] LABS: Hematocrit 36.0 % (36.0-46.0); Hemoglobin 11.9 g/dL (12.2-16.2); Mean Corpuscular Hemoglobin 30.5 pg (28.0-32.0); Mean Corpuscular Volume 91.8 fL (80.0-100.0); Nucleated Red Blood Cells % 0.0 %
[2025-08-10 07:24] LABS: Albumin 3.8 g/dL (3.2-4.8); Alkaline Phosphatase 91 U/L (46-116); Anion Gap 10 (5-15); BUN/Creatinine Ratio 13.5 (10.0-20.0); Bilirubin, Total 0.8 mg/dL (0.2-1.0); Blood Urea Nitrogen 10 mg/dL (9-23); Calcium 8.8 mg/dL (8.7-10.4); Carbon Dioxide 28 mmol/L (20-31); Chloride 106 mmol/L (98-107); Glucose 90 mg/dL (74-106); Potassium 3.7 mmol/L (3.5-5.1); Sodium 144 mmol/L (136-145); Total Protein 6.2 g/dL (5.7-8.2)
[2025-08-10 07:25] LABS: Alanine Aminotransferase 62 U/L (7-40)
[2025-08-10 12:30] VITALS: BP 139/88; PULSE 80; RESP 16; TEMP 98.3; O2SAT 96
--- NOTE | 2025-08-10 13:13 | DVHDSRES ---
Discharge Summary Date of Admission Resident Creating Document: MARISA MOY RESIDENT Aug 05, 2025 at 17:39 Date of Discharge: Aug 10, 2025 Admitting Diagnosis Acute gallstone pancreatitis Labs/Diagnostic Data: Laboratory Results Test 08/10/25 11:16 08/10/25 06:04 08/09/25 04:50 08/07/25 06:27 POC Glucose 76 mg/dl (70-106) White Blood Count 5.7 10^3/uL (4.4-10.8) Red Blood Count 3.92 10^6/uL (4.0-5.20) Hemoglobin 11.9 g/dL (12.2-16.2) Hematocrit 36.0 % (36.0-46.0) Mean Corpuscular Volume 91.8 fL (80.0-100.0) Mean Corpuscular Hemoglobin 30.5 pg (28.0-32.0) Mean Corpuscular Hemoglobin Concent 33.2 g/dL (32.0-36.0) Red Cell Distribution Width 14.9 % (11.8-14.3) Platelet Count 197 10^3/uL (140-450) Mean Platelet Volume 10.3 fL (6.9-10.8) Neutrophils (%) (Auto) 63.6 % (37.0-80.0) Lymphocytes (%) (Auto) 23.9 % (10.0-50.0) Monocytes (%) (Auto) 5.7 % (0.0-12.0) Eosinophils (%) (Auto) 5.9 % (0.0-7.0) Basophils (%) (Auto) 0.9 % (0.0-2.0) Neutrophils # (Auto) 3.6 10 ^3/uL (1.6-8.6) Lymphocytes # (Auto) 1.4 10 ^3/uL (0.4-5.4) Monocytes # (Auto) 0.3 10 ^3/uL (0-1.3) Eosinophils # (Auto) 0.3 10 ^3/uL (0-0.8) Basophils # (Auto) 0.1 10 ^3/uL (0-0.2) Nucleated Red Blood Cells 0.0 % Sodium Level 144 mmol/L (136-145) Potassium Level 3.7 mmol/L (3.5-5.1) Chloride Level 106 mmol/L (98-107) Carbon Dioxide Level 28 mmol/L (20-31) Anion Gap 10 (5-15) Blood Urea Nitrogen 10 mg/dL (9-23) Creatinine 0.74 mg/dL (0.550-1.02) Glomerular Filtration Rate Calc 98 mL/min (>90) BUN/Creatinine Ratio 13.5 (10.0-20.0) Serum Glucose 90 mg/dL (74-106) Calcium Level 8.8 mg/dL (8.7-10.4) Total Bilirubin 0.8 mg/dL (0.2-1.0) Aspartate Amino Transferase (AST) 33 U/L (13-40) Alanine Aminotransferase (ALT) 62 U/L (7-40) Alkaline Phosphatase 91 U/L (46-116) Total Protein 6.2 g/dL (5.7-8.2) Albumin 3.8 g/dL (3.2-4.8) Magnesium Level 1.9 mg/dL (1.6-2.6) Direct Bilirubin 0.4 mg/dL (<0.3) Prothrombin Time 11.2 sec (9.3-11.8) Prothrombin Time INR 1.06 (0.9-1.15) Activated Partial Thromboplast Time 29.5 SEC (24.5-34.5) Beta HCG, Quantitative 3.6 mIU/mL (1.5-4.2) Test 08/06/25 01:00 08/05/25 13:54 Urine Color Light-yellow (Yellow) Urine Clarity Clear (Clear) Urine pH 6.0 (5.0-9.0) Urine Specific [place] 1.032 (1.001-1.035) Urine Protein Negative (Negative) Urine Ketones Negative (Negative) Urine Blood Negative /uL (Negative) Urine Nitrite Negative (Negative) Urine Bilirubin Negative (Negative) Urine Urobilinogen Normal mg/dL (Negative) Urine Leukocyte Esterase 1+ /uL (Negative) Urine RBC None seen /hpf (0 - 4) Urine Microscopic WBC 6 /HPF (0-5) Urine Squamous Epithelial Cells Few /hpf (<5) Urine Bacteria Few /hpf (None Seen) Urine Mucus Few (None Seen) Urine Glucose Normal mg/dL (Normal) Hemoglobin A1c 5.6 % A1C (<5.7) Triglycerides Level 174 mg/dL (< 150) Cholesterol Level 166 mg/dL (< 200) LDL Cholesterol 77 mg/dL (< 100) HDL Cholesterol 45 mg/dL (40-59) Lipase > 3500 U/L (12-53) Vitamin B12 Level 441 pg/mL (211-911) Vitamin D 25-Hydroxy 41.5 ng/mL (30.0-100) Folic Acid 16.39 ng/mL (>5.38) Other Laboratory Tests 08/10/25 06:04 Brief Hx & Hospital Course: Patient is 50 years old female with past medical history of diabetes mellitus on Ozempic, hyperlipidemia, knee pain came with a complaint of abdominal pain. As per patient she started having epigastric pain started on 0 07/22/25, 08/06, radiating to the back, intermittent, crampy or sharp in nature. As per patient pain is to go down to 5/10 and go away sometimes but from yesterday from 07/05/2025 patient's pain is persistent, in the epigastric region, associated nausea and vomiting 3 times, no blood. Patient also reported nonbloody diarrhea 2 times. Patient denied any fever, dysuria, acute joint redness or swelling, chest pain no shortness of breaths. Initial lab workup revealed leukocytosis with WBC 12.5, bilirubin 1.3, direct bilirubin 0.4, AST 54, ALT 54. Urinalysis revealed leukocyte esterase 1+, WBC 6, bacteria few. CT abdomen and pelvis- Subtle findings of acute pancreatitis.Mild nonspecific gallbladder mural thickening. In the setting of pancreatitis, consider recently passed stone. Please correlate with laboratory values. Mild colonic diverticulosis. Ultrasound of the liver revealed1. Cholelithiasis, thickened gallbladder wall, negative sonographic Hernández's sign. 16.7 cm liver with fatty changes of the parenchyma.3. 3 cm anechoic cortical lesion right kidney consistent with a cortical cyst. MRCP revealed- Acute pancreatitis. Cholelithiasis with mild gallbladder wall mural edema/wall thickening. Normal caliber biliary ductal system. No intraductal filling defect to suggest a stone. Condition at Discharge: Stable Final Diagnosis/Problems List # acute gallstone pancreatitis # intractable abdominal pain with nausea and vomiting likely due to above # suspected acute cholecystitis # transaminitis # cholelithiasis, gallbladder wall thickening and edematous # UTI # diabetes mellitus type 2 # hyperlipidemia # obesity, Discharge Disposition: Home Discharge Instruct/Medications Diet: Consistent carbohydrate Activity: No Restrictions, As Tolerated Activity comment: No lifting over 10 lb for 6-8 weeks May shower today, soap and water okay to run over incision sites No bathing or swimming for 2 weeks No driving while taking narcotics Follow-up with Dr. Newton at surgery Clinic in 2 weeks Follow Up/Referral: Please follow up in the discharge clinic in 2 weeks as per schedule Please follow up with the primary care physician in 1-2 weeks Please follow up with your surgeon Dr. Newton in 2 weeks Medications: Cefpodoxime 200 mg p.o. b.i.d. for 5 days Metronidazole 500 mg p.o. b.i.d. for 5 days Ibuprofen 400 mg q.6h PRN Please resume other home medications Scheduled Atorvastatin Calcium (Atorvastatin Calcium), 1 TAB PO DAILY, (Reported) Cefpodoxime Proxetil (Cefpodoxime Proxetil), 1 TAB PO BID Metronidazole (Metronidazole), 500 MG PO TID Omeprazole (Gnp Omeprazole), 1 TAB PO DAILY, (Reported) Pantoprazole Sodium Sesquihydr (Pantoprazole Sodium), 40 MG PO DAILY Scheduled PRN Ibuprofen (Ibuprofen), 1 TAB PO Q6HPRN PRN Miscellaneous Medications Semaglutide (Ozempic), 2 MG SC, (Reported) Discharge Statement: "Patient was advised to return to the ER or call 911 if any headaches, dizziness, shortness of breath, chest pain, abdominal pain, bleeding, fevers, or worsening of medical condition. Patient was counseled about treatment plan, medications, possible side effects, patientverbalized understanding. All questions were answered to the best of my ability. This discharge took greater then 30 minutes in planning, reviewing documentation, counseling the patient, and discussing with other team members." ASSESSMENT ASSESSMENT Assessment Same Date of Service: Aug 10, 2025 Billing Provider: CHAN MICHELE MD,[facility]UR[facility]NICOLE RESIDENT Aug 10, 2025 13:13
[2025-08-10] MEDS ORDERED: PANT40TA2 PO (13:16)
[2025-08-10] MEDS ORDERED: IBUP-1453 PO ×2 (13:16→14:20)
[2025-08-10] MEDS ORDERED: MET500T PO ×2 (13:16→14:17)
[2025-08-10] MEDS ORDERED: CEFP200T15 PO ×2 (13:16→14:17)
[2025-08-10] MEDS ORDERED: PANT40T PO (14:20)
[2025-08-10 16:22] VITALS: BP 139/88; PULSE 80; RESP 16; TEMP 36.8; O2SAT 96
[2025-08-10 16:50] VITALS: BP 128/80; PULSE 76; RESP 17; TEMP 98; O2SAT 95
== END 2025-08-10 18:21 | disposition home or self-care (01) | DRG 263 ==
LOC: ER 12:05 → OVERFLOW 17:39 → WEST WING 08-06 04:35
PROVIDERS: ADMIT Student in an Organized Health Care Education/Training Program; ATTEND Student in an Organized Health Care Education/Training Program
PROC: 0FT44ZZ Resection of Gallbladder, Percutaneous Endoscopic Approach (ICD-10-PCS; principal; 2025-08-08 13:09)
DX: K85.10 Biliary acute pancreatitis without necrosis or infection (principal); B95.2 Enterococcus as the cause of diseases classified elsewhere; E11.9 Type 2 diabetes mellitus without complications; K76.0 Fatty (change of) liver, not elsewhere classified; E66.01 Morbid (severe) obesity due to excess calories; Z68.41 Body mass index [BMI] 40.0-44.9, adult; K57.30 Diverticulosis of large intestine without perforation or abscess without bleeding; E78.5 Hyperlipidemia, unspecified; N39.0 Urinary tract infection, site not specified; K80.20 Calculus of gallbladder without cholecystitis without obstruction; K66.0 Peritoneal adhesions (postprocedural) (postinfection); Z87.891 Personal history of nicotine dependence
CPT/HCPCS: 36415; 71045; 74177; 74181; 76705; 80048; 80053; 80061; 80076; 81001; 82248; 82306; 82607; 82746; 82962; 83036; 83690; 83735; 84702; 85025; 85610; 85730; 86850; 86900; 86901; 87086; 87088; 87186; 93005; 96365; 96375; 99291; G0378; J2003; J2250; J2405; J2470; J2704; J3480; J3490